=== PATIENT | female | born 1940 | race Caucasian/White ===

== ENCOUNTER 2017-05-31 09:41 | Inpatient (IN) | payer MEDICARE, OTHER ==
[~2017-05-31] VITALS: Ht 165.1 cm; Wt 102.5 kg
[2017-06-03] MEDS ORDERED: HYDROCHLOROTHIA50 MG PO (16:27)
[2017-06-03] MEDS ORDERED: SYNTHROID200 MCG PO (16:28)
[2017-06-03] MEDS ORDERED: MULTIVITAMINS1 EAC7 PO (16:29)
[2017-06-03] MEDS ORDERED: ULTRAM50 MG PO (16:30)
[2017-06-03] MEDS ORDERED: KLOR-CON M1010 MEQ PO (16:32)
[2017-06-17] MEDS ORDERED: LEVAQUIN750 MG PO (06:08)
--- NOTE | 2017-06-17 17:43 | OR ---
[facility] [address] [place], [place] [address] Signed DATE OF PROCEDURE: 06/17/17 PREOPERATIVE DIAGNOSES Degenerative joint disease, right knee, severe. Rotator cuff tear, left shoulder. POSTOPERATIVE DIAGNOSES Degenerative joint disease, right knee, severe. Rotator cuff tear, left shoulder. PROCEDURES PERFORMED Right total knee arthroplasty with computer navigation. Left shoulder injection. SURGEON: Roosevelt Josue MD. ASSISTANTS Mandi Carranza PA-C. Mandi was present for the entire surgery and was critical for positioning, retraction and wound closure. RAÚL Gutierrez. ANESTHESIA: Spinal. BLOOD LOSS: Minimal. TOURNIQUET TIME: 54 minutes. IMPLANT SIZE: 4 triathlon femur and tibia, 11 mm insert, 32 mm patella. BRIEF HISTORY Emerita is a 77-year-old female with progressive worsening of arthritis. She had undergone a long series of nonoperative treatment with diminishing return. Risks and benefits of all treatment discussed with her and she had successful left total knee replacement. She elected to proceed. DESCRIPTION OF PROCEDURE Once consent was obtained, she was taken to the operating room after adequate anesthesia, was placed on operating room table. All downside pressure points were completed. Time-out was completed. The leg was prepped and draped in a standard sterile fashion, exsanguinated using Esmarch bandage and tourniquet inflated to 250 mmHg. Standard anterior approach through curved incision was taken through skin and subcutaneous tissue. Median parapatellar arthrotomy was performed. The infrapatellar fat Electronically Signed By: ROOSEVELT JOSUE MD 06/17/17 1743 PATIENT NAME: JAYMIE SCHAFFER OPERATIVE REPORT DATE OF : 42 PHYSICIAN: ROOSEVELT JOSUE MD REPORT #: [id number] REPORT IS CONFIDENTIAL AND NOT TO BE RELEASED WITHOUT AUTHORIZATION [facility] [address] [place], [place] [address] Signed pad was excised. The MCL was elevated of a sleeve around the posterior medial corner. The meniscal remnants were removed and the ACL was transected. PCL was found to be intact. The navigation guide was pinned to the distal femur and the femur was registered with the computer. The cutting block was then pinned in neutral alignment and the distal femoral cut was made. The distal femur sized to a 4, which matched the opposite side. The AP cutting block was then pinned in line with epicondylar axis and the anterior, posterior and chamfer cuts were made . Osteophytes were removed and all bone blocks were removed. The attention was then turned to the proximal tibia. The navigation guide was pinned to the top of the tibia and the tibia was registered with the computer. The cutting block was then pinned in neutral alignment and the tibial cut was made with care taken to protect the patellar tendon and MCL. The bone block was removed. Any meniscal remnants removed. Posterior release was performed off the femur and posterior osteophytes removed, which were quite large on the medial side. The flexion-extension gaps were sized, found to be symmetric at 11 mm. The trials were then positioned. Knee was taken through range of motion and found to be quite stable. The patella was cut sized and drilled for a 32 patella. The distal femoral holes were drilled. The trial was removed and the proximal tibia was finished using the keel punch. Bone was pulse lavaged, packed with dry Ray-Ras. The cement was mixed. When we reached proper consistency, it was placed on bone surfaces and all implants. Tibia was impacted in position first and the excess cement was removed. The polyethylene was snapped into position. The femur was impacted. Again, any excess was removed. The knee was extended and nicely loaded. Patella was clamped into position and all excess was removed. Cement was on for 14 minutes and then the knee was flexed and the remaining cement was removed using osteotomes. Periarticular soft tissues were injected with 100 mL of ropivacaine and Toradol mixture. The knee was pulse lavaged at intervals throughout the procedure, a total of 3 L were used. The arthrotomy was then closed using #1 Stratafix, 0 Stratafix for subcutaneous tissue, and ave for the skin. The wound was dressed with Mepilex Ag dressing, ABD and Aman wrap. She was awakened and taken recovery in satisfactory condition. At the end of the procedure, I did inject her subacromial space with 6 mL of Ropivacaine and Kenalog mixture. She having substantial shoulder pain. Roosevelt Josue MD BA/Modl /[id number] Electronically Signed By: ROOSEVELT JOSUE MD 06/17/17 1743 PATIENT NAME: JAYMIE SCHAFFER OPERATIVE REPORT DATE OF : 42 PHYSICIAN: ROOSEVELT JOSUE MD REPORT #: [id number] REPORT IS CONFIDENTIAL AND NOT TO BE RELEASED WITHOUT AUTHORIZATION [address] [address] Signed cc: Gurdeep Adair DO Electronically Signed By: ROOSEVELT JOSUE MD 06/17/17 1743 PATIENT NAME: JAYMIE SCHAFFER KIM OPERATIVE REPORT DATE OF : 42 PHYSICIAN: ROOSEVELT JOSUE MD REPORT #: [id number] REPORT IS CONFIDENTIAL AND NOT TO BE RELEASED WITHOUT AUTHORIZATION
[2017-06-17] MEDS ORDERED: SYNTHROID25 MCG PO (18:14)
[2017-06-20] MEDS ORDERED: XARELTO10 MG PO (07:37)
[2017-06-20] MEDS ORDERED: MIRALAX17 GM PO (07:37)
[2017-06-20] MEDS ORDERED: OXYCODONE HCL5 MG PO (07:37)
[2017-06-20] MEDS ORDERED: HYDROCODON-ACE1 EA11 PO (07:37)
[2017-06-20] MEDS ORDERED: DOCUSATE SODIU250 MG PO (07:37)
[2017-06-20] MEDS ORDERED: NYSTATIN100000 UN1 PO (09:51)
--- NOTE | 2017-06-20 15:44 | DS ---
[facility] [address] [place], [place] [address] Signed DATE OF DISCHARGE: 06/20/17 ADMISSION DIAGNOSIS Degenerative joint disease, right knee . DISCHARGE DIAGNOSIS Degenerative joint disease, right knee. PROCEDURE PERFORMED Right total knee arthroplasty. BRIEF HISTORY Emerita is a 77-year-old female with progressive worsening of her osteoarthritis. She had prior total knee and wished to proceed with one on this side. Risks and benefits of operative treatment were discussed with her and she elected to proceed. Once consent was obtained, she was taken to the operating room. After adequate anesthesia, she underwent the above-named procedure. Taken to recovery room and subsequently to orthopedic floor. Postoperatively, her pain relief was good initially; however, she struggled and we increased her Oxycodone to 10 mg q.6 hours and this managed her pain. She had [place] for breakthrough pain. She did well with physical therapy, was able ambulae down the tristan and went up and down stairs by the day of discharge. She was kept kept on DVT prophylaxis of SCDs, TEDs and Xarelto 10 mg daily. She will be discharged home with outpatient physical therapy and her current medications. The Xarelto will continue for 7 more days. She will follow up with me in 10-14 days as previously scheduled. Roosevelt Josue MD BA/Albertina /[id number] cc: Gurdeep Adair DO Electronically Signed By: ROOSEVELT JOSUE MD 06/20/17 1544 PATIENT NAME: JAYMIE SCHAFFER DISCHARGE SUMMARY DATE OF : 42 PHYSICIAN: ROOSEVELT JOSUE MD REPORT #: [id number] REPORT IS CONFIDENTIAL AND NOT TO BE RELEASED WITHOUT AUTHORIZATION
== END 2017-06-20 11:17 | disposition home or self-care (01) | DRG 470 ==
LOC: MS 06-17 05:45 → DSVR 06-17 05:45 → MS 06-17 06:45
PROVIDERS: ADMIT Specialist
PROC: 3E0U33Z Introduction of Anti-inflammatory into Joints, Percutaneous Approach (ICD-10-PCS; 2017-06-17)
PROC: 3E0U3BZ Introduction of Anesthetic Agent into Joints, Percutaneous Approach (ICD-10-PCS; 2017-06-17)
PROC: 0SRC0JZ Replacement of Right Knee Joint with Synthetic Substitute, Open Approach (ICD-10-PCS; principal; 2017-06-17 06:45)
DX: M17.11 Unilateral primary osteoarthritis, right knee (principal); N39.0 Urinary tract infection, site not specified; M75.102 Unspecified rotator cuff tear or rupture of left shoulder, not specified as traumatic; I10 Essential (primary) hypertension; E03.9 Hypothyroidism, unspecified; B96.20 Unspecified Escherichia coli [E. coli] as the cause of diseases classified elsewhere
CPT/HCPCS: 01402; 36415; 64447; 76942; 80048; 83735; 85025; 94762; 97110; 97116; 97162; 97530; C1713; C1776; J0690; J1100; J1885; J2250; J2274; J2405; J2704; J2795; J3010; J3301; J3475; J7120

== ENCOUNTER 2017-07-04 09:09 | Observation (INO) | payer MEDICARE, OTHER ==
[~2017-07-04] VITALS: Ht 165.1 cm; Wt 102.5 kg
[~2017-07-04 09:09] MED LIST: DOCUSATE SODIU250 MG PO; HYDROCHLOROTHIA50 MG PO; HYDROCODON-ACE1 EA11 PO; KLOR-CON M1010 MEQ PO; LEVAQUIN750 MG PO; MIRALAX17 GM PO; MULTIVITAMINS1 EAC7 PO; NYSTATIN100000 UN1 PO; OXYCODONE HCL5 MG PO; SYNTHROID200 MCG PO; SYNTHROID25 MCG PO; ULTRAM50 MG PO; XARELTO10 MG PO
--- NOTE | 2017-07-04 14:00 | NUR ---
DIRECT ADMIT TO FLOOR PER DR. AMAYA FOR R LEG CELLULITS POST TKA SURGERY DONE 2 WEEKS AGO. PATIENT STATES " IT STARTED TO TURN RED IN LAST COUPLE DAYS". ICE APPLIED TO SURGICAL SITE, AND HEEL PROTECTORS ON. ADMINISTERED SCHEDULED PAIN MEDICAITON AND STARTED A 20G IN RIGHT FA. PROVIDED PATIENT WITH ICE WATER AND CALL LIGHT IS WITHIN REACH. FULL BODY ASSESMENT DONE. NOW WAITING FOR PHARMACY TO PROVIDE IV VANCO.
--- NOTE | 2017-07-04 15:45 | NUR ---
FAMILY BROUGHT IN KYRO CUFF, FILLED WITH ICE AND APPLIED TO KNEE. PATIENT REPORTS CONCERNS ABOUT BLOOD BEING DRAWN, STATES " I WILL NOT HAVE MY BLOOD DRAWN WHILE I AM HERE." DISCUSSED IMPORTANCE OF HAVING BLOOD TO MONITOR RESPONSE TO VANCO IV TX. RIGHT LEG WARM TO TOUCH, NOTED REDNESS EXPANDING DOWN INTO COLES, NOTES PAIN IS IN UPPER KNEE.
--- NOTE | 2017-07-04 17:03 | NUR ---
LAB DRAW BEING DONE FOR CMP. PATIENT RESTING IN BED, REPORTS GOOD PAIN CONTROL AT THIS TIME. VANCO CONTINUES TO INFUSE.
[2017-07-04] MEDS ORDERED: NABUMETONE750 MG PO (18:45)
--- NOTE | 2017-07-04 18:45 | NUR ---
PATIENT DIRECT ADMIT TO FLOOR FROM DR. AMAYA OFFICE. CELLULITIS TO LOWER EXTREMITY. NOTED SOME REDNESS TO RIGHT COLES. INCREASED PAIN TO SURGICAL SITE. AFEBRILE. VS STABLE. ADMIINISTERED PAIN MEDICATION PRN, RATES PAIN 3/10 ON PAIN SCALE WHILE RESTING. 1 PERSON ASSIST WITH WALKER.
[2017-07-04] MEDS ORDERED: CHLOROTHIAZIDE PO (18:46)
--- NOTE | 2017-07-04 18:50 | NUR ---
MED REC COMPLETE
--- NOTE | 2017-07-04 19:51 | NUR ---
IN TO MEET PT, PT AWAKE WATCHING TV. RATES PAIN 1/10 WITH REST AND STATES IT INCREASES WITH ACTIVITY. DISCUSS CURRENT PAIN AND EXPECTATIONS FOR PAIN. DISCUSSED MEDICATION OPTIONS. PT IS CONCERNED ABOUT THRUSH WHEN TAKING ABX, NOTE WRITTEN TO DISCUSS. DRESSING C/D/I. REDNESS NOTED ON R COLES AND CALF. PT DESCRIBES PAIN ON THE LATERAL ASPECT OF THE R KNEE. WATER AT BEDSIDE. NO FURTHER NEEDS AT THIS TIME. CALL LIGHT WITH IN REACH.
--- NOTE | 2017-07-04 21:08 | NUR ---
IN TO SEE PT, SCHEDULED PAIN MEDICATION GIVEN. PT AWAKE AND ALERT. PT UP TO BATHROOM WITH FWW AND 1 PERSON ASSIST. NOTED THAT R ANKLE/FOOT ROTATED IN AN OUTWORD POSITION AND PT WALKING ON HEEL. PT ADVISED TO ATTEMPT TO STRAIGHTEN FOOT, PT AWARE. PT STATES THAT SHE IS UNABLE TO STRAIGHTEN HER FOOT DUE TO PAIN. PT ASSISTED BACK TO BED. TOLERATED WELL. CRYO CUFF IN PLACE. NO FURTHER NEEDS AT THIS TIME. CALL LIGHT IN REACH.
--- NOTE | 2017-07-04 23:07 | NUR ---
IN TO CHECK ON PT, PT SLEEPING. AWAKENS EASILY TO SOUND. PT STATES "I AM DOING OKAY." NO FURTHER NEEDS AT THIS TIME. CRYO CUFF, TEDS AND HEEL PROTECTORS IN PLACE. WATER AT BEDSIDE. CALL LIGHT WITH IN REACH.
--- NOTE | 2017-07-05 | NUR ---
IN TO CHECK ON PT, PT SLEEPING. AWAKENS EASILY TO VOICE. RATES PAIN A 1/10 WHILE STILL. PAIN INCREASES WITH ACTIVITY. OXYCODONE PRN GIVEN. NO FURTHER NEEDS AT THIS TIME. CRYO CUFF, TEDS AND HEEL PROTECTORS IN PLACE. CALL LIGHT WITH IN REACH.
--- NOTE | 2017-07-05 02:05 | NUR ---
IN TO CHECK ON PT, PT AWAKE, UP TO BATHRROM WITH ASSIST FROM INSTRUMENT ASSEMBLER. PT RATES PAIN A 4/10. SCHEDULED MEDICATION GIVEN. PT ASSISTED BACK TO BED. PT IS CONCERNED THAT REDNESS ON R LE IS WORSENING. ASSESSMENT DONE, REDNESS DOES NOT APPEAR TO BE WORSENING. WILL CONTINUE TO MONITOR. CRYO CUFF, TEDS AND HEEL PROTECTORS IN PLACE. NO FURTHER NEEDS AT THIS TIME. CALL LIGHT IN REACH.
--- NOTE | 2017-07-05 04:27 | NUR ---
IN TO CHECK ON PT, PT SLEEPING ON R SIDE. NO APPARENT DISTRESS NOTED. RR EVEN AT 16 AND UNLABORED. CRYO CUFF IN PLACE. TEDS AND HEEL PROTECTORS IN PLACE. WATER AT BEDSIDE. CALL LIGHT WITH IN REACH.
--- NOTE | 2017-07-05 05:55 | NUR ---
PT HAS HAD UNEVENTFUL SHIFT. C/O PAIN A 1-4/10, SCHEDULED AND PRN MEDICATIONS GIVEN. PT RATES PAIN A 1/10 WHILE LYING IN BED AND INCREASES TO A 4-5/10 WITH AMBULATION. PT AAO X3, PLEASANT DEMEANOR. CALL APPROPRIATLY. DRESSING C/D/I, REDNESS NOTED ON R LE. AFIBRILE. PT UP TO BATHROOM WITH FWW AND STANDBY ASSIST. DENIES NAUSEA. CRY CUFF, TEDS AND HEEL PROTECTORS IN PLACE.
--- NOTE | 2017-07-05 08:30 | NUR ---
DISCUSSED PAIN MEDICATIONS WITH PATIENT, AND ENCOURAGED PATIENT TO TRY DILAUDID ESPECIALLY WITH ACTIVITIES OF THE DAY. PATIENT AGREED TO PLAN OF CARE ADMINISTERED 8MG DILAUDID PO. ICE TO KNEE, REDNESS APPEARS TO BE IMPROVED AND DECREASED SWELLING. DR. AMAYA ROUNDED ON PATIENT. NO NEW ORDERS AT THIS TIME.
--- NOTE | 2017-07-05 10:00 | NUR ---
PATIENT RESTING EASY WITH EYES CLOSED, O2 SATURTION 94% RR 14. PATIENT STATES PAIN IS 0/10 AND HASN'T FELT PAIN FREE SINCE SURGERY. PHYSICAL THERAPY TO ROOM TO WORK WITH PATIENT, PATIENT APPEARS ENCOURAGED TO PARTICIPATE. AMBULATED IN WALL AND TO PHYSICAL THERAPY ROOM.
--- NOTE | 2017-07-05 12:24 | NUR ---
PATIENT RESTING ON SIDE OF BED, STATES " I AM STARTING TO HURT AGAIN" PATIENT REQUESTED 2TABS OF OXYCODONE PO. PATIENT ATE 30% OF LUNCH BUT REPORTS FEELING MORE HUNGRY THEN SHE HAS BEEN. ICE TO LOWER EXTREMITY, REDNESS CONTINUES TO IMPROVE AND APPEARS LESS SWOLLEN. PATIENT INDEPENDANT IN ROOM, APPEARS STEADY ON FEET.
--- NOTE | 2017-07-05 14:31 | NUR ---
PATIENT RESTING IN BED AT THIS TIME, PAIN WELL CONTROLLED. PATIENT CONTINUES TO REPORT PAIN IS IMPROVED. VOIDING WELL. DISCUSSED MEDICAITONS, PATIENT REPORTS CONCERNS OF GETTING ADDICTED TO PAIN MEDICAITONS. PROVIDED REASSURANCE AND ENCOURAGEMENT TO CONTROL PAIN. VS STABLE. CRYO CUFF ON AND HEEL PROTECTORS. PATIENT UP TO BATHROOM STEADY ON FEET.
--- NOTE | 2017-07-05 18:16 | NUR ---
PAIN HAS BEEN WELL CONTROLLED THROUGHOUT DAY, PATIENT REPORTS IMPROVED FROM YESTERDAY. ICE THERAPY AND HEEL PROTECTORS IN PLACE. PATIENT UP INDEPENDANTLY IN ROOM. GOOD ROM. GOOD PEDAL PULSES. AFEBRILE. WORKED WITH PHYSICAL THERAPY X2. VS STABLE.
--- NOTE | 2017-07-05 18:28 | NUR ---
PATIENT REPORTS PAIN TO RIGHT LEG HAS IMPROVED THROUGHOUT DAY. IV VANCO TX, TOLERATING WELL. PAIN WELL CONTROLLED. INDEPENDANT IN ROOM. AFERBILE, VS STABLE.
--- NOTE | 2017-07-05 18:51 | NUR ---
REFILLED CRYO AT 1600.
--- NOTE | 2017-07-05 19:15 | NUR ---
IN TO CHECK ON PT, PT AWAKE LAYING IN BED. REPORT RECVD FROM SCOTTY ESPAÑA. PT STATES SHE HAD A GOOD DAY AND HAS HAD BETTER PAIN CONTROL AFTER STARTING PO DILAUDID. PT REQUEST DILAUDID FOR PAIN BEFOR BED. DRSG C/D/I. REDNESS ON R COLES AND ANKLE NOTED TO BE DECREASED. PT IS INDEPENDENT IN ROOM, STEADY ON FEET WITH ASSIST OF FWW. CRYO CUFF, TEDS AND HEEL PROTECTORS IN PLACE. CALL LIGHT WITH IN REACH.
--- NOTE | 2017-07-05 20:01 | NUR ---
IN TO SEE PT, ASSESSMENT COMPLETED AND PM MEDICATION GIVEN. DILAUDID GIVEN PER PT REQUEST, SCHEDULED OXYCODONE HELD. PT AWAKE AND ALERT, WATCHING TV. PT UP TO BATHROOM WITH FWW. PT TOLERATED WELL, LITTLE ASSIST NEEDED. FRESH WATER GIVEN. CRYO CUFF, TEDS AND HEEL PROTECTORS IN PLACE. NO FURTHER NEEDS AT THIS TIME. CALL LIGHT IN REACH.
--- NOTE | 2017-07-05 22:10 | NUR ---
IN TO CHECK ON PT, PT APPEARS TO BE SLEEPING. NO APPARENT DISTRESS NOTED. CRYO CUFF AND TEDS IN PLACE. WALKER AT BEDSIDE PT IS INDEPENDENT IN HER ROOM. CALL LIGHT IN REACH.
--- NOTE | 2017-07-06 00:44 | NUR ---
IN TO CHECK ON PT, PT SLEEPING. AWAKENS EASILY TO SOUND. PT RATES PAIN A 4/10 WHILE UP TO THE BATHROOM. PRN DILAUDID GIVEN. PT ASSISTED BACK TO BED. CRYO CUFF FILLED WITH ICE. FRESH ICE WATER GIVEN. CRYO CUFF AND TEDS IN PLACE. NO FURTHER NEEDS AT THIS TIME. CALL LIGHT IN REACH.
--- NOTE | 2017-07-06 02:08 | NUR ---
IN TO PT'S ROOM, PT SLEEPING. AWAKENS EASILY TO VOICE. SCHEDULED PAIN MEDICATIONS GIVEN. PT REPOSITIONED FOR COMFORT. CRYO CUFF AND TEDS IN PLACE. NO FURTHER NEEDS AT THIS TIME. CALL LIGHT IN REACH.
--- NOTE | 2017-07-06 04:12 | NUR ---
IN TO CHECK ON PT, PT SLEEPING. AWAKENS EASILY TO VOICE. PT STATES "MY PAIN IS OKAY." OFFERED PRN MEDICTION, PT DECLINED. PT STATES "LET'S WAIT." CRYO CUFF AND TEDS IN PLACE. WALKER AT BEDSIDE PT IS INDEPENDENT IN ROOM. WILL CONTINUE TO MONIOR. CALL LIGHT IN REACH.
--- NOTE | 2017-07-06 05:10 | NUR ---
PT HAS HAD UNEVENTFUL SHIFT. SCHEDULED OXYCODONE AND PRN DILAUDID GIVEN FOR PAIN. PAIN APPEARS TO BE BETTER CONTROL WITH PRN DILAUDID. PT AAO X3, PLEASANT DEMENOR. DRSG C/D/I. REDNESS IN RLE IMPROVING. AFIBRILE, VITALS STABLE. PT IS INDEPENDENT IN ROOM WITH ASSIST OF FWW. VOIDING WELL. CRYO CUFF AND TEDS IN PLACE.
--- NOTE | 2017-07-06 06:09 | NUR ---
IN TO CHECK ON PT, PT SLEEPING. AWAKENS EASILY TO VOICE. PT ASKED IF BREAKTHROUGH PAIN MEDICATION WAS NEEDED, PT STATES " I DON'T KNOW, I AM NOT HURTING RIGHT NOW." PT ADVISED TO CALL IF PAIN MEDICATION IS NEEDED, BEFORE THE NEXT SCHEDULED DOSE. NO FURTHER NEEDS AT THIS TIME. CRYO CUFF AND TEDS IN PLACE. CALL LIGHT IN REACH.
--- NOTE | 2017-07-06 06:50 | NUR ---
IN TO SEE PT, PT REQUEST PAIN MEDICATION FOR 4/10 PAIN. DISCUSSED UPCOMING SCHEDULED MEDICATIONS AND PRN OPTIONS. PRN DILAUDID GIVEN IN ANTICIPATION OF PT THIS AM. PT STATES "THAT MY PAIN HAS IMPROVED A LOT." PT DOES HAVE CONCERNS REGARDING DISCHARGE MEDICATIONS. ENCOURAGED PT TO SPEAK WITH DR. AMAYA REGARDING HER CONCERNS. NO FURTHER NEEDS AT THIS TIME. CALL LIGHT IN REACH.
--- NOTE | 2017-07-06 07:20 | NUR ---
BEDSIDE HANDOFF REPORT RECEIVED FROM BAR MACHINE OPERATOR MULTIPLE SPINDLE RN. PT RESTING IN BED. PT RATING PAIN 1/10 WITH MOVEMEMT. PT ASSISTED WITH INTERNET ACCESS. PT DENIES OTHER NEEDS AT THIS TIME.
--- NOTE | 2017-07-06 09:00 | NUR ---
PT RESTING IN BED. PT CONTINUES TO RATE PAIN 1/10 AT THIS TIME. HAD LENGTHY DISCUSSION ON PAIN MANAGEMENT, PT STATING "I AM SO CONFUSED ABOUT THE PAIN MEDICATION", WROTE OUT PAIN MEDICATIONS AND MAD PLAN TO CONTINUE SCHEDULE OXYCODONE, USE DILAUDID FOR BREAKTHROUGH AND THEN USE ADDITONAL PRN OXYCODONE LAST, PT AGREEABLE STATING "I FEEL I GET BETTER COVERAGE WITH DILAUDID". PT LUNG SOUNDS CLEAR, ON ROOM AIR. BOWEL TONES, DENIES NAUSEA. RLE WITH REDNESS TO LOWER COLES, BRUISING NOTED. RIGHT KNEE WITH DRESSING, CDI. TEENA HOSE AND CRYOCUFF IN PLACE. PT DENIES OTHER NEEDS AT THIS TIME, WILL REASSESS PAIN DISCUSSED WITH PT.
--- NOTE | 2017-07-06 10:46 | NUR ---
PT IS CURRENTLY WORKING WITH PHYSICAL THERAPY WILL DO VITALS UPON RETURN
--- NOTE | 2017-07-06 11:20 | NUR ---
PT REQUESTING PAIN MEDICATION. RATING PAIN 3/10, COMPLETED THERAPY, RATED PAIN DURING THERAPY 3/10. PT DENIES OTHER NEEDS AT THIS TIME.
--- NOTE | 2017-07-06 13:05 | NUR ---
PT RESTING IN BED. RATES PAIN 0-1/10 AT THIS TIME. REQUESTING WARM BLANKET, RPOVIDED, CRYOCUFF IN PLACE, ICE REFRESHED. PT REQUESTING TO NAP.
--- NOTE | 2017-07-06 14:38 | NUR ---
PT IS RESTING IN BED SAFELY WITH CALL LIGHT IN REACH. PT DID NOT NEED ANYTHING AT THE MOMENT
--- NOTE | 2017-07-06 16:52 | NUR ---
IV SITE TO R ARM LEAKING. VANCO INFUSION STOPPED. IV SITE OBTAINED TO LEFT FOREARM, DIFFICULT START, REQUIRED 5 ATTEMPTS. IV VANCO INFUSING.
--- NOTE | 2017-07-06 18:26 | NUR ---
PT AHD UNEVENTFUL DAY. PAIN PLAN ESTABLISHED WITH PT, ALTERNATING DILAUDID WITH SCHEDULED OXYCODONE, PAIN WELL CONTROLLED 1-01/11. NEW IV ACCESS TO LFA, INFUSING VANCO. PT UP WITH SBA TO BATHROOM, VOIDING QS. TEENA HOSE AND CRYOCUFF INPLACE. REDNESS UNCHAGED THIS SHIFT, LOCALIZED TO LOWER COLES.
--- NOTE | 2017-07-06 18:37 | NUR ---
PT IS RESTING IN BED SAFELY WITH CALL LIGHT IN REACH. PT ASKED FOR MORE ICE WATER AND VANILLA PUDDING
--- NOTE | 2017-07-06 20:08 | NUR ---
PT AWAKE, AND TALKING ON PHONE.
--- NOTE | 2017-07-06 21:30 | NUR ---
PT REFUSED THE ORDERED MILK OF MAGNESIUM. STATED SHE DIDN'T NEED IT. ASSESSMENT COMPLETE. PT STATED THAT SHE WANTED TO STAY AHEAD HER PAIN. HAS SCHEDULED PAIN MED, WITH DILUADID PRN. WANTS THE DILUADID IN BETWEEN THE SCHEDULED OXYCODONE. PT RT LOWER LEG, COLES WITH APPROX 8 CM REDNESS. WARM AND DRY, PT STATES THAT THE REDDNESS HAD BEEN FROM HER KNEE DOWN. MULT BRUISES NOTED, POST SURGERY. PT USED THE BATHROOM WELL, OUT OF BED INDEPENDENTLY WITH A FRONT WHEELED WALKER.
--- NOTE | 2017-07-06 22:30 | NUR ---
PT AWAKE, WATCHING TV. MEDICATED WITH PRN DILUADID PER PT REQUEST. STATES THAT THIS MEDICATION REGIME HAS HELPED KEEP HER PAIN LEVEL TO A #1, AND GETTING UP TO WALK TO THE BATHROOM, WHILE PAINFUL, IS MANAGEABLE.
--- NOTE | 2017-07-07 00:30 | NUR ---
LIGHTS OUT, PT EYES CLOSED, RESP EVEN AND UNLABORED.
--- NOTE | 2017-07-07 02:29 | NUR ---
PT RESP EVEN AND UNLABORED. HAS NOT USED CALL LIGHT SINCE [phone]
--- NOTE | 2017-07-07 02:59 | NUR ---
PT MEDICATED WITH SCHEDULED PAIN MEDS. UP TO THE BATHROOM TO VOID. USED WALKER, NOTED HER RIGHT FOOT IS TURNED OUT VS TOES POINTING AHEAD. WHEN RECORRECTING PATIENT OF WALKING WITH HER TOES POINTED FORWARD, SHE SAID THIS IS HOW MY FOOT ALWAYS IS. YOU ARE ALL TRYING TO CHANGE IT BUT I WALK WITH MY FOOT THIS WAY. "SHOULD SEE MY FOOTPRINTS IN THE SNOW".
--- NOTE | 2017-07-07 03:23 | NUR ---
PATIENT CALLED, ASKED HELP TO PLACE THE CRYO CUFF BACK TO HER RT KNEE. CRYO CUFF REFILLED. PATIENT ASKED FOR CHOCOLATE PUDDING AND ICE WATER.
--- NOTE | 2017-07-07 05:56 | NUR ---
PT AWAKE, MEDICATED WITH PRN DILAUDID. EARIER IN NIGHT PT REQUESTED PUDDING. PAIN CONTINUES AT A "1", USED CRYO CUFF ALL NIGHT. TEENA HOSE IN PLACE. MOVING SELF AROUND IN BED INDEPENDELTY.
--- NOTE | 2017-07-07 07:20 | NUR ---
HANDOFF REPORT RECEIVED FROM DIRECTOR OF SPORTS MEDICINE RN.
--- NOTE | 2017-07-07 08:55 | NUR ---
PT SITTING ON EDGE OF BED, PA AT BEDSIDE. PT RATING PAIN 1/10 AT THIS TIME. PT DENIES NAUSEA, TOLERATING REGUALR DIET. PT ON ROOM AIR, LUNG SOUNDS CLEAR. DISCUSSED PAIN MANAGEMENT, PLAN TO CONTINUE CURRENT SCHEDULE OF ALTERNATIGN SCHEDULED OXYCODONE AND DILAUDID, PT REQUESTING A CHART TO BE MADE WITH TIMES. RLE WITH SWELLING TO COLES JUST ABOVE ANKLE, NO SWELLING NOTED. DISCUSSED VANCO TROUGH WITH PT, AGREEBLE TO BLOOD DRAW. PT DENIES OTHER NEEDS AT THIS TIME. ICE IN CRYOCUFF REFRESHED BY NURSE AIDE.
--- NOTE | 2017-07-07 11:10 | NUR ---
PT REQUESTING PAIN MEDICATION BEFORE WORKING WITH PHYSICAL THERAPY. GIEN 8 MG PO DILAUDID PER PAIN MANAGEMENT PLAN. PT RESTING IN BED. CRYOCUFF IN PLACE. PT DENIES OTHER NEEDS AT THIS TIME.
--- NOTE | 2017-07-07 12:14 | NUR ---
PT WORKING WITH PHYSICAL THERAPY, WALKING IN [facility].
--- NOTE | 2017-07-07 12:35 | NUR ---
PATIENT IS DOING GOOD. REFILLED CRYO CUFF.
--- NOTE | 2017-07-07 14:20 | NUR ---
PT RESTING IN BED. PT RATING PAIN 1/10 TO RIGHT KNEE, GIVEN 7.5 MG PO OXYCODONE SCHEDULED. DISCUSSED PLAN FOR VANCO TROUGH LAB DRAW, LIBRARY MEDIA TECHNICIAN AT BEDSIDE. PT ON ROOM AIR. DENIES NAUSEA, TOLERATING REGULAR DIET. WITHOUT EDEMA, CMS INTACT. CRYOCUFF AND TEENA HOSE ON. PT DENIES NEEDS AT THIS TIME.
--- NOTE | 2017-07-07 16:00 | NUR ---
VANCO DOSE ADJUSTED BY PHARMACY FOR TROUGH OF 8.4. PT REQUESTING TO USE RESTROOM. VANCO INFUSING. PT REQUESTING MILK OF MAG EARLY.
--- NOTE | 2017-07-07 17:33 | NUR ---
PT GIVEN 8 MG PO DILAUDID PER PAIN PLAN SCHEDULE. PT RESTING IN BED. IV VANCO INFUSING. PT DENIES OTHER NEEDS AT THIS TIME.
--- NOTE | 2017-07-07 18:07 | NUR ---
PT HAD UNEVENTFUL DAY. PAIN WELL CONTROLLED WITH PAIN PLAN, ALTERNATING BETWEEN DILAUDID AND OXYCODONE. PT INDEPENDENT IN ROOM, SBA TO WALK IN WALL. PT TOLERATING REGUALR DIET, DENIES NAUSEA. VANCO TROUGH 8.4, DOSE ADJUSTED. IV SL. BOWEL TONES ACTIVE, REQUEST MILK OF MAG EARLY. REDNESS TO RLE UNCHANGED, NO LONGER WARMER TO TOUCH. TEENA HOSE AND CRYOCUFF IN PLACE.
--- NOTE | 2017-07-07 19:25 | NUR ---
RECEIVED REPORT FROM DAY SHIFT RN. PATIENT IS RESTING IN BED WATCHING TV. PATIENT DENIES ANY PAIN AT THIS TIME. PATIENT DENIES ANY NEEDS. CALL LIGHT IN REACH.
--- NOTE | 2017-07-07 21:49 | NUR ---
PATIENT ASSESMENT COMPLETED. PATIENT RATES PAIN AT A 1/10. PATIENT GIVEN SCHEDULED PAIN MEDICATION PER ORDER. PATIENT DENIES THE NEED FOR FURTHER PAIN MEDICATION AT THIS TIME. PATIENT HAS CRYO APPLIED TO RIGHT KNEE. PATIENTS CRYO REFILLED WITH ICE PER DRECTIONS. PATIENT HAS TEDHOSE ON BOTH LOWER EXTREMETIES. PATIENT REFUSES TO WEAR HEEL PROTECTORS STATING "THEY MAKE ME TO HOT". PATIENT IS ON A REG DIET, NO CAOMPLAINTS OF NAUSEA. PATIENT IS A SBA W/FWW. PATIENT IS AAOX3. PATIENT DENIES ANY FURTHER NEEDS AT THIS TIME. CALL LIGHT IN REACH.
--- NOTE | 2017-07-07 23:26 | NUR ---
PATIENT GIVEN PRN PAIN MEDICATION PER REQUEST. PATIENT RATES PAIN AT A 1/10 IN HER IRGHT KNEE. PATIENT ASSISTED TO THE RESTROOM. PATIENT IS A SBA W/FWW. PATIENT IS STEADY ON HER FEET. PATIENT IS NOW BACK IN BED RESTING. PATIENT HAS CRYO APPLIED TO RIGHT KNEE. CRYO HAS SUFFICIENT ICE AT THIS TIME. PATIENT DENIES ANY FURTHER NEEDS. CALL LIGHT IN REACH.
--- NOTE | 2017-07-08 01:12 | NUR ---
PATIENT IS RESTING IN BED WITH EYES CLOSED, RR 17
--- NOTE | 2017-07-08 02:22 | NUR ---
PATIENT GIVEN SCHEDULED PAIN MEDICATION. PATIENT RATES PAIN AT A 1/10 IN HER RIGHT KNEE. PATIENTS CRYO REFFILED WITH ICE PER DIRECTIONS. CRYO APPLIED TO RIGHT KNEE. PATIENT DENIES ANY FURTHER NEEDS CALL LIGHT IN REACH.
--- NOTE | 2017-07-08 04:03 | NUR ---
PATIENTS IV ABX STARTED PER ORDER. PATIENT RATES PAIN AT A 1/10. PATIENT DENIES THE NEED FOR PAIN MEDICATION. PATIENT DENIES ANY FURTHER NEEDS AT THIS TIME. CALL LIGHT IS WITHIN REACH.
--- NOTE | 2017-07-08 05:10 | NUR ---
PATIENT GIVEN PRN PAIN MEDICATION PER REQUEST. PATIENT RATES PAIN AT A 1/10 ON HER RIGHT KNEE. PATIENT ASSISTED TO THE RESTROOM. PATIENT IS A SBA W/FWW. PATIENT DOES WELL WITH AMBULATION. PATIENT IS NOW BACK IN BED RESTING. PATIENT HAS CRYO APPLIED TO RIGHT KNEE AND IS HAS SUFFICIENT ICE. PATIENT DENIES ANY FURTHER NEEDS CALL LIGHT IN REACH.
--- NOTE | 2017-07-08 05:38 | NUR ---
PATIENT RESTED ON AND OFF THROUGHOUT THE SHIFT. PATIENT IS ON A REG DIET AND TOLERATING IT WELL. NO COMPLAINTS OF NAUSEA. PATIENT HAS TEDHOSE ON BOTH LOWER EXTREMETIES. PATIENT HAS CRYO APPLIED TO RIGHT KNEE. PATIENT IS A SBA W/FWW. PATIENT HAS DRESSING ON RIGHT KNEE THAT IS C/D/I W/NO SHADOWING PRESENT. PATIENT HAS REDENNED AREA ON THE FRONT OF HER CALF, IT IS NOT WARM TO THE TOUCH. PATIENT RECEIVED PRN PAIN MEDICATION EVERY TIME IT WAS AVAILABLE. PATIENT IS AAOX3 AND USES CALL LIGHT APPROPRIATELY.
--- NOTE | 2017-07-08 06:23 | NUR ---
PATIENTS MORNING MEDICATIONS GIVEN PER ORDER. PATIENTS IV ABX ARE COMPLETED. PATIENT IS NOW SL. PATIENT DENIES ANY PAIN. PATIENT DENIES ANY FURTHER NEEDS AT THIS TIME. PATIENTS CRYO REFILLED WITH ICE. PATIENTS DRESSING REMAINS C/D/I, NO SHADOWING PRESENT.
--- NOTE | 2017-07-08 08:12 | NUR ---
PT AWAKE IN BED UPON ENTERING ROOM. ALERT AND ORIENTED. RATING PAIN 1/10 IN RIGHT KNEE. MEDICATED WITH SCHEDULED OXY. PT SBA WITH FWW TO RESTROOM. RIGHT KNEE DRESSING CDI, NO BLEEDING OR DRAINAGE NOTED. NO REDNESS OR BRUISING NOTED AT SITE. RIGHT LOWER EXTREMITY CELLULITIS MILDLY PINK, SLIGHTLY WARM TO THE TOUCH. PT AMB TO BEDSIDE FROM RESTROOM. SITTING AT EDGE OF BED EATING BREAKFAST. CALL LIGHT WITHIN REACH.
--- NOTE | 2017-07-08 08:34 | NUR ---
PATIENT SITTING AT BED SIDE EATING BREAKFAST.
--- NOTE | 2017-07-08 09:24 | NUR ---
PATIENT SITTING UP IN BED. PATIENT STATES THAT SHE WASHED HERSELF UP AND BRUSHED HER TEETH ALREADY. CALL BUTTON IN REACH NO OTHER NEEDS AT THIS TIME.
--- NOTE | 2017-07-08 09:37 | NUR ---
PT WORKING WITH ELENA Hidalgo.
[2017-07-08] MEDS ORDERED: HYDROMORPHONE HC4 MG PO (09:43)
[2017-07-08] MEDS ORDERED: KEFLEX500 MG PO (09:43)
[2017-07-08] MEDS ORDERED: OXYCODONE HCL5 MG PO (09:43)
--- NOTE | 2017-07-08 11:00 | NUR ---
SPOKE WITH DR. AMAYA CONCERNING DC MEDS. RECEIVED TELEPHONE ORDER FOR LEVAQUIN. PT RECIEVED PRESCRIPTION FOR NARCOTC MEDS. JOSE LUIS STATED RIGHT KNEE DRESSING COULD BE REMOVED. THIS RN TOLD PT THAT DRESSING COULD COME OFF, PT REFUSED TO LET THIS RN REMOVE IT STATED "I WOULD PREFER TO REMOVE IT MYSELF WHEN I GET HOME." PT DISCHARGED HOME WITH CRYO CUFF AND PRESCRIPTION. ALL QUESTIONS BY PT AND SON ANSWERED.
--- NOTE | 2017-10-21 07:22 | DS ---
[facility] [address] [place], [place] [address] Signed ADMISSION DATE: 07/04/2017 DISCHARGE DATE: 07/08/2017 ADMISSION DIAGNOSIS: Cellulitis, right lower extremity. DISCHARGE DIAGNOSIS: Cellulitis, right lower extremity. PROCEDURE PERFORMED: None. 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 She had undergone outpatient physical therapy and developed redness in the pretibial area. She was seen in the office and admitted to the hospital with correction for IV antibiotics. She was placed on vancomycin. Her pain control was relatively poor. So we switched around her pain medication and then got much better. Her redness went away after 3 days and she was switched to oral medications of Levaquin. She will be discharged home with her current pain medications and 14 days of p.o. antibiotics. The patient will follow up with me in 7 days or notify me should she have any problems sooner. Roosevelt Josue MD BA/SANDER /[id number] Electronically Signed By: ROOSEVELT JOSUE MD 10/21/17 0722 PATIENT NAME: DEDE SCHAFFER DISCHARGE SUMMARY DATE OF : 42 PHYSICIAN: ROOSEVELT JOSUE MD REPORT #: [id number] REPORT IS CONFIDENTIAL AND NOT TO BE RELEASED WITHOUT AUTHORIZATION
== END 2017-07-08 11:32 | disposition home or self-care (01) ==
LOC: EDSTATUS 09:09 → MS 11:36
PROVIDERS: ADMIT Specialist
DX: T81.4XXA Infection following a procedure, initial encounter (principal); L03.115 Cellulitis of right lower limb; E66.9 Obesity, unspecified; E03.9 Hypothyroidism, unspecified; I10 Essential (primary) hypertension; Z68.37 Body mass index [BMI] 37.0-37.9, adult; Z96.651 Presence of right artificial knee joint; Z88.2 Allergy status to sulfonamides
CPT/HCPCS: 36415; 80048; 80053; 80202; 85025; 96365; 96366; 96375; 96376; 97032; 97110; 97116; 97162; G0378; G0379; G8978; G8979; J1885; J3370; J7060

== ENCOUNTER 2019-09-30 11:47 | Emergency (ER) | payer MEDICARE, OTHER ==
[~2019-09-30] VITALS: Ht 165.1 cm; Wt 98.4 kg
--- OUTSIDE RECORDS SUMMARY | ~2019-09-30 | XMS | Encounter Summary ---
Demographics + + + | Address | [address] | | | [place] [address] | + + + | Home Phone | | + + + | Preferred Language | Unknown | + + + | Marital Status | Single | + + + | Mormon Affiliation | 1077 | + + + | Race | Unknown | + + + | Ethnic Group | Unknown | + + + Author + + + | Author | [facility] | | | and [place] | + + + | Organization | [facility] | | | and [place] | + + + | Address | Unknown | + + + | Phone | Unavailable | + + + Support + + +---------+ + | Name | Relationship | Address | Phone | + + +---------+ + | None Listed | ECON | Unknown | | + + +---------+ + | Gunner Past | ECON | Unknown | | + + +---------+ + Care Team Providers + +------+ + | Care Pearl Glue Operator Name | Role | Phone | + +------+ + | Gurdeep Adair DO | PCP | | + +------+ + Reason for Visit Service/Procedure (Routine) +--------+--------+ + + + + | Status | Reason | Specialty | Diagnoses / | Referred By | Referred To | | | | | Procedures | Contact | Contact | +--------+--------+ + + + + | Closed | | Radiology | Diagnoses | | [facility] | | | | | Lumbar | [place], | [address] | | | | | radiculopath | Clint Oliva MD | [place], | | | | | y | [address] | [place] | | | | | Procedures | [place] | [address] | | | | | [place] INJECT | [place], [place] | Phone: | | | | | ANES/STEROID | [address] | [phone] | | | | | FORAMEN | Phone: | Fax: | | | | | LUMBAR/SACRA | [phone] | [phone] | | | | | L W IMG | Fax: | | | | | | GUIDE ,1 | [phone] | | | | | | LEVEL [place] | | | | | | | TRIAMCINOLON | | | | | | | E ACET INJ | | | | | | | NOS, 10 MG | | | | | | | Bilateral | | | | | | | L4-L5 | | | | | | | TFESI-APPT | | | | | | | 12/15 | | | +--------+--------+ + + + + Encounter Details +--------+ + + + + | Date | Type | Department | Care Team | Description | +--------+ + + + + | 10/18/ | Hospital | [facility] | Clint Cárdenas | Lumbar radiculopathy | | 2015 | Encounter | MED CTR XRAY [address], [address] | | | | | [place] | [place], [place] | | | | | [place] [address] | [address] | | | | | [phone] | | | | | | | Cook PieNicole | | +--------+ + + + + Social History + +-------+ +--------+------+ | Tobacco Use | Types | Packs/Day | Years | Date | | | | | Used | | + +-------+ +--------+------+ | Never Smoker | | | | | + +-------+ +--------+------+ + +---+---+---+ | Smokeless Tobacco: | | | | | Never Used | | | | + +---+---+---+ + + +---------+ + | Alcohol Use | Drinks/Week | oz/Week | Comments | + + +---------+ + | No | 0 Standard drinks | 0.0 | | | | or equivalent | | | + + +---------+ + + + + | Sex Assigned at | Date Recorded | | | | + + + | Not on file | | + + + + + + + | Job Start Date | Occupation | Industry | + + + + | Not on file | Not on file | Not on file | + + + + + + + + | Travel History | Travel Start | Travel End | + + + + + + | No recent travel history available. | + + documented as of this encounter Last Filed Vital Signs + +---------+ + + | Vital Sign | Reading | Time Taken | Comments | + +---------+ + + | Blood Pressure | 203/102 | 10/18/2015 3:00 PM | | | | | PST | | + +---------+ + + | Pulse | 90 | 10/18/2015 2:33 PM | | | | | PST | | + +---------+ + + | Temperature | - | - | | + +---------+ + + | Respiratory Rate | - | - | | + +---------+ + + | Oxygen Saturation | - | - | | + +---------+ + + | Inhaled Oxygen | - | - | | | Concentration | | | | + +---------+ + + | Weight | - | - | | + +---------+ + + | Height | - | - | | + +---------+ + + | Body Mass Index | - | - | | + +---------+ + + documented in this encounter Medications at Time of Discharge + + + +---------+--------+ + | Medication | Sig | Dispensed | Refills | Start | End Date | | | | | | Date | | + + + +---------+--------+ + | Calcium-Magnesium | Take by mouth 2 | | 0 | | | | 750-465 MG TABS | times daily. | | | | | + + + +---------+--------+ + | chlorothiazide | Take 500 mg by mouth | | 0 | | | | (DIURIL) 500 MG | every morning. | | | | | | tablet | | | | | | + + + +---------+--------+ + | Cholecalciferol | Take by mouth. | | 0 | | | | (VITAMIN D PO) | | | | | | + + + +---------+--------+ + | Cyanocobalamin | Take by mouth. | | 0 | | | | (VITAMIN B 12 PO) | | | | | | + + + +---------+--------+ + | | Take 50 mg by mouth | | 0 | | | | hydrochlorothiazide | Daily. | | | | | | 50 mg tablet | | | | | | + + + +---------+--------+ + | levothyroxine | Take 200 mcg by | | 0 | | | | (SYNTHROID, | mouth every morning | | | | | | LEVOTHROID) 200 mcg | (before breakfast). | | | | | | tablet | | | | | | + + + +---------+--------+ + | Multiple Vitamin | Take by mouth | | 0 | | | | (THERAGRAN PO) | Daily. | | | | | + + + +---------+--------+ + | nabumetone | Take 750 mg by mouth | | 0 | | | | (RELAFEN) 750 mg | 3 times daily. | | | | | | tablet | | | | | | + + + +---------+--------+ + | potassium chloride | Take 10 mEq by mouth | | 0 | | | | (BRIEN QUILES) 10 | 2 times daily. | | | | | | MEQ ER tablet | | | | | | + + + +---------+--------+ + | traMADol (ULTRAM) | Take 50 mg by mouth | | 0 | | | | 50 mg tablet | every 6 hours as | | | | | | | needed for Pain. | | | | | + + + +---------+--------+ + documented as of this encounter Plan of Treatment Not on filedocumented as of this encounter Procedures + +--------+ + + + | Procedure Name | Priori | Date/Time | Associated Diagnosis | Comments | | | ty | | | | + +--------+ + + + | FL EPIDURAL STEROID | Routin | 10/18/2015 | Lumbar | Results for this | | INJECTION LUMBAR | e | 2:55 PM | radiculopathy | procedure are in the | | TRANSFORAMINAL | | PST | | results section. | + +--------+ + + + documented in this encounter Results FL CHARAN Lumbar Transforaminal (10/18/2015 2:55 PM PST) + + | Specimen | + + | | + + + + + | Narrative | Performed At | + + + | 10/18/2015 Bilateral Transforaminal Epidural Steroid Injections | [place] | | Diagnosis: Lumbar radiculopathy ICD-10 Code M54.16 Dede | [facility] | | P Post presents to the fluoroscopy suite for fluoroscopically-guided [facility] | | bilateral L4-L5 transforaminal epidural steroid injections as part | - IMAGING | | of conservative management for chronic pain with lumbar | | | radiculopathy and degenerative disk disease. After informed consent | | | was obtained, the patient lay in the prone position on the | | | fluoroscopy table. The areas were identified under fluoroscopic | | | guidance. The areas were prepped and draped in sterile fashion. A | | | 25-gauge, 1.5-inch needle was inserted into each region and | | | approximately 3 mL of buffered 1% lidocaine was infused. Then, a | | | 22-gauge spinal needle was inserted into the posterior superior | | | transforaminal space bilaterally and advanced into the epidural | | | space under fluoroscopic guidance. Confirmation into the epidural | | | space was obtained with infusion of approximately 1 mL of Omnipaque | | | contrast which showed epidural flow as well as nerve sheath flow. | | | Then, a combination of 2 mL of 1% lidocaine and 2 mL of 6 mg/mL | | | Celestone was infused, divided between the two sides. The patient | | | tolerated the procedure well without complications. Pre- and | | | post-procedure blood pressures were stable. The patient was given | | | verbal as well as written follow-up instructions. Prior to the | | | start of the procedure, the following were performed and/or | | | verified, including correct patient identity, correct site/side marked | | | and visible, agreement on the procedure to be done, correct patient | | | positioning and an accurate procedure consent form. Any safety | | | precautions based on clinical history and/or medication use have | | | been addressed. I personally performed the procedure above. | | | Estimated blood loss: Minimal Complications: None Findings: As | | | expected Anesthesia: Local 1% Lidocaine | | + + + + + + + + | Performing | Address | City/State/Zipcode | Phone Number | | Organization | | | | + + + + + | [facility] | [address] | [place], [place] | [phone] | | [facility] | | [address] | | | - IMAGING | | | | + + + + + documented in this encounter Visit Diagnoses + + | Diagnosis | + + | Lumbar radiculopathy Thoracic or lumbosacral neuritis or radiculitis, unspecified | + + documented in this encounter Administered Medications + +--------+ +-------+------+ + | Medication Order | MAR | Action | Dose | Rate | Site | | | Action | Date | | | | + +--------+ +-------+------+ + | betamethasone (CELESTONE | Given | 10/18/20 | 12 mg | | Other | | SOLUSPAN) injection 12 mg 12 mg, | | 15 3:00 | | | (Comment | | Intramuscular, EVERY 24 HOURS | | PM PST | | | ) | | INTERVAL, First dose on Sat | | | | | | | 10/18/15 at 1500, For 2 doses, | | | | | | | Shake well. Not for IV use., | | | | | | | Radiology | | | | | | + +--------+ +-------+------+ + +---+---+ | | | +---+---+ + +-------+ +-------+---+---+ | iohexol (OMNIPAQUE 300) 300 | Given | 10/18/20 | 2 mLs | | | | mg/mL injection 2 mL 2 mL, | | 15 2:57 | | | | | Other, ONCE PRN, Other, Starting | | PM PST | | | | | e 10/18/15 at 1440, For 1 dose, | | | | | | | Radiology | | | | | | + +-------+ +-------+---+---+ +---+---+ | | | +---+---+ + +-------+ +-------+---+---+ | lidocaine (PF) 1% injection 2 | Given | 10/18/20 | 2 mLs | | | | mL 2 mL, Other, ONCE, Tue | | 15 3:00 | | | | | 10/18/15 at 1500, For 1 dose, | | PM PST | | | | | Radiology | | | | | | + +-------+ +-------+---+---+ +---+---+ | | | +---+---+ + +-------+ +-------+---+ + | lidocaine buffered 1% injection | Given | 10/18/20 | 6 mLs | | Other | | 6 mL 6 mL, Intradermal, ONCE, | | 15 2:52 | | | (Comment | | 10/18/15 at 1500, For 1 dose, | | PM PST | | | ) | | Radiology | | | | | | + +-------+ +-------+---+ + +---+---+ | | | +---+---+ documented in this encounter"
--- OUTSIDE RECORDS SUMMARY | ~2019-09-30 | XMS | Encounter Summary ---
Demographics + + + | Address | [address] | | | [place] [address] | + + + | Home Phone | | + + + | Preferred Language | Unknown | + + + | Marital Status | Single | + + + | Latter-Day Affiliation | 1077 | + + + | Race | Unknown | + + + | Ethnic Group | Unknown | + + + Author + + + | Author | [facility] | | | and [place] | + + + | Organization | [facility] | | | and [place] | [...] Team Providers + +------+ + | Care Bronze Chaser Name | Role | Phone | + [...] | Lumbar | [place], | [address] | | | | | radiculopath | Clint Oliva MD | [place], | | | | | y | [address] | [place] | | | | | Procedures | [place] | [address] | | | | | [place] INJECT | [place] | Phone: | | | | | ANES/STEROID | [address] | [phone] | | | | | FORAMEN | Phone: | Fax: | | | | | LUMBAR/SACRA | [phone] | [phone] | | | | | L W IMG | Fax: | | | | | | GUIDE ,1 | [phone] | | | | | | L[place]EL [place] | | | | | | | [...] + + | 10/18/ | Hospital | [facility] | Clint Cárdenas | Lumbar radiculopathy | | 2015 | Encounter | MED CTR XRAY [address] | T, [address] | | | | | [place] | [place], [place] | | | | | [place] [address] | [address] | | | | | [phone] | | | | | | | [place]eter[place]ole | | +--------+ + + + + [...] 10/18/2015 Bilateral Transforaminal Epidural Steroid Injections | [facility] | | Diagnosis: Lumbar radiculopathy ICD-10 Code M54.16 Dede | [facility] | | P Post presents to the fluoroscopy suite for fluoroscopically-guided [facility] | | bilateral L4-L5 transforaminal epidural [...] ST. | [address] | [place], [place] | [phone] | | [facility] | | [address] | | | - IMAGING | | [...]
--- OUTSIDE RECORDS SUMMARY | ~2019-09-30 | XMS | Encounter Summary ---
Demographics + + + | Address | [address] | | | [place] [address] | + + + | Home Phone | | + + + | Preferred Language | Unknown | + + + | Marital Status | Single | + + + | Judaism Affiliation | 1077 | + + + | Race | Unknown | + + + | Ethnic Group | Unknown | + + + Author + + + | Author | [facility] | | | and [place] | + + + | Organization | [facility] | | | and [place] | + + + | Address | Unknown | + + + | Phone | Unavailable | + + + Support + + +---------+ + | Name | Relationship | Address | Phone | + + +---------+ + | None Listed | ECON | Unknown | | + + +---------+ + | Gunner Daniel | ECON | Unknown | | + + +---------+ + Care Team Providers + +------+ + | Care Foundation Stage Teacher Name | Role | Phone | + +------+ + | Gurdeep Adair DO | PCP | | + +------+ + Reason for Visit + + + | Reason | Comments | + + + | Back Pain | Low back pain that radiates into the left leg | + + + Evaluate & Treat (Routine) +--------+--------+ + + + + | Status | Reason | Specialty | Diagnoses / | Referred By | Referred To | | | | | Procedures | Contact | Contact | +--------+--------+ + + + + | Closed | | Physical | Diagnoses | Joselo, | Avi, | | | | Medicine and | Back pain | Rosalio Castrejon, | Clint Oliva MD | | | | Rehabilitatio | Spinal | [address] | [address] | | | | n | stenosis | [address] | [address] | | | | | | [place], | [place] | | | | | | [place] | [address] Phone: | | | | | | [address] | [phone] | | | | | | Phone: | Fax: | | | | | | [phone] | [phone] | | | | | | Fax: | | | | | | | [phone] | | +--------+--------+ + + + + Encounter Details +--------+---------+ + + + | Date | Type | Department | Care Team | Description | +--------+---------+ + + + | 10/06/ | Office | [facility] | Clint Cárdenas | Spinal stenosis, | | 2014 | Visit | PHYSIATRY [address] | [address] | lumbar (Primary Dx); | | | | [place], | [address] [place], [place] | Lumbar | | | | [place] [address] | [address] | radiculopathy; | | | | [phone] | | Foraminal stenosis | | | | | | of lumbar region; | | | | | | Spondylolisthesis | +--------+---------+ + + + Social History + +-------+ [...] this encounter Last Filed Vital Signs + + + + + | Vital Sign | Reading | Time Taken | Comments | + + + + + | Blood Pressure | 138/74 | 10/06/2015 10:45 AM | | | | | PST | | + + + + + | Pulse | 79 | 10/06/2015 10:45 AM | | | | | PST | | + + + + + | Temperature | - | - | | + + + + + | Respiratory Rate | - | - | | + + + + + | Oxygen Saturation | - | - | | + + + + + | Inhaled Oxygen | - | - | | | Concentration | | | | + + + + + | Weight | 106.6 kg (235 lb) | 10/06/2015 10:45 AM | | | | | PST | | + + + + + | Height | 170.2 cm (5' 7") | 10/06/2015 10:45 AM | | | | | PST | | + + + + + | Body Mass Index | 36.81 | 10/06/2015 10:45 AM | | | | | PST | | + + + + + documented in this encounter Patient Instructions Patient Instructions Vidhya Neely CMA - 10/06/2015 11:20 AM PST Follow-up at the hospital thirty minutes before your scheduled procedure to allow for time to check in. You may eat and drink as usual on the day of the procedure. If you are scheduled for an epidural injection do not take any blood thinning medications f or at least 5-7 days prior to your procedure unless you have been instructed by another phys ician not to discontinue blood thinning medications. If you are having a procedure other than an epidural injection (i.e. facet injection, media l branch block, SI joint injection or other joint injection) it is not absolutely necessary to discontinue blood thinning medications but doing so will decrease the risk of bruising or bleeding. If you have had a prior stroke, DVT or PE or if you are taking blood thinning medication be cause you have atrial fibrillation, a prosthetic cardiac valve replacement or heart stenting do not stop taking your blood thinning medications unless you have permission from your car diologist or primary care provider. All other medications should be taken as usual on the day of the procedure. Common blood thinning medications include: Aspirin (a baby aspirin is o.k.) Ibuprofen (Advil or Motrin) Naproxen (Aleve) Nabumetone (Relafen) Clopidogrel (Plavix) Dipyridamole/ASA (Aggrenox) Warfarin (Coumadin) Dabigatran (Pradaxa) Rivaroxaban (Xarelto) There are many others. If you have questions about your medications and whether or not you should stop any medications please contact our office. If you are having an epidural injection or if you take any medication for relaxation/sedati on on the day of the procedure you must provide a local bulk driver to take you home. For all procedur es it is recommended that someone else drive you home. documented in this encounter Progress Notes Clint Cárdenas MD - 10/06/2015 10:47 AM PST Clint Cárdenas MD [address] [facility], [address] [place], [place] [id number] FAX: PHYSICAL MEDICINE AND REHABILITATION H&P CHIEF COMPLAINT: Chief Complaint Patient presents with Back Pain Low back pain that radiates into the left leg HISTORY OF PRESENT ILLNESS: The patient is a 75 y.o. female being seen today at the [facility] of Dr. Josue for complaint of low back pain that began 30+ years ago. The patient reports that the pain started without any inciting event. The symptoms have been gradually worseni ng. She rates the pain as severe. The symptoms are daily. She describes the pain as aching, t hrobbing and tingling. The patient describes leg symptoms that occur on both sides. The buttock and leg symptoms account for greater than or equal to 50% of her symptoms. The leg symptoms are intermittent and the symptoms travel from the low back into both buttocks and sometimes further down the leg into the thigh, especially on the left. The patient does report numbness in the left l eg. She does not report weakness. The patient does not report any change in bowel or bladder function or saddle anesthesia re cently. Her symptoms improve with sitting. Her symptoms worsen with standing and walking. She has tried PT, Chiropactic, NSAIDS, Steroids and Injections. The patient had two prior steroid injections which were performed by a provider in [place] approximately 4 years ago . I do not have record of which injections were performed. She reports good relief with the first injection but not with the second. PAST MEDICAL HISTORY: Past Medical History Diagnosis Date Hypertension Gout Thyroid disease Unilateral primary osteoarthritis, right hip Spinal stenosis of lumbar region Other spondylosis with myelopathy, thoracolumbar region Poor circulation Spinal stenosis, lumbar 10/06/2015 Foraminal stenosis of lumbar region 10/06/2015 Spondylolisthesis 10/06/2015 Lumbar radiculopathy 10/06/2015 PAST SURGICAL HISTORY: Past Surgical History Procedure Laterality Date Total knee arthroplasty Carpal tunnel release Appendectomy Cholecystectomy Hysterectomy Myomectomy CURRENT MEDICATIONS: Current Outpatient Prescriptions Medication Sig Dispense Refill Calcium-Magnesium 750-465 MG TABS Take by mouth 2 times daily. chlorothiazide (DIURIL) 500 MG tablet Take 500 mg by mouth every morning. Cholecalciferol (VITAMIN D PO) Take by mouth. Cyanocobalamin (VITAMIN B 12 PO) Take by mouth. hydrochlorothiazide 50 mg tablet Take 50 mg by mouth Daily. levothyroxine (SYNTHROID, LEVOTHROID) 200 mcg tablet Take 200 mcg by mouth every mornin g (before breakfast). Multiple Vitamin (THERAGRAN PO) Take by mouth Daily. nabumetone (RELAFEN) 750 mg tablet Take 750 mg by mouth 3 times daily. potassium chloride (K-DUR,KLOR-CON) 10 MEQ ER tablet Take 10 mEq by mouth 2 times daily . traMADol (ULTRAM) 50 mg tablet Take 50 mg by mouth every 6 hours as needed for Pain. No current facility-administered medications for this visit. ALLERGIES: Allergies Allergen Reactions Sulfa Antibiotics Rash SOCIAL HISTORY: The patient reports that she has never smoked. She has never used smokeless tobacco. She r eports that she does not drink alcohol or use illicit drugs. FAMILY HISTORY: Family History Problem Relation Age of Onset Heart disease Father Cancer Maternal Grandmother Alcohol abuse Other Relation unknown Arthritis Other Relation unknown Hypertension Other Relation unknown REVIEW OF SYSTEMS: GENERALLY: No fever, no night sweats, no anemia, + fatigue, + recent profound weight munoz ges. EYES: No eye problems, no use of corrective lenses, no eye injury, no double vision, no bl indness. EARS, NOSE, AND THROAT: No changes in taste or smell, no hearing difficulty, no ringing in the ears, no ear drainage, no dizziness, no voice changes, no difficulty swallowing, + sign ificant snoring, no sleep apnea, + sinus problems, + major dental work. NEUROLOGICALLY: Please see the review of systems discussed above in the history of present illness. In addition, the patient has numbness/pain of legs, muscle aching, coordination d ifficulty, change in walk and pain in back. PSYCHIATRIC: No depression, no sleep disorders, no anxiety, no bipolar disorder, no psycho tic episodes. CARDIOVASCULAR: No heart attacks, no heart murmur, no heart fluttering, no chest pain, no ankle swelling. LUNG DISEASE: No shortness of breath, no cough, no tuberculosis, no bloody cough, no asth ma, no emphysema/COPD. GASTROINTESTINAL: No bowel disease, no nausea or vomiting, no rectal bleeding, no constipa tion, no stool incontinence, no liver disease, no gallbladder disease, no abdominal pain, no ulcers. KIDNEY DISEASE: No urinary frequency, no painful or difficult urination, no incontinence. ENDOCRINE: No diabetes, + thyroid disease, no osteopenia or osteoporosis, no breast draina ge. SKIN: No breast lumps, no skin changes, no rashes, no itches. HEMATOLOGIC/LYMPHATIC: No enlarged lymph nodes, no easy or unusual bleeding, no personal h istory of cancer. RHEUMATOLOGIC: + joint arthritis, no rheumatoid arthritis. PHYSICAL EXAMINATION: Blood pressure 138/74, pulse 79, height 1.702 m (5' 7"), weight 106.595 kg (235 lb). Body m ass index is 36.8 kg/(m^2). GENERAL: The patient is well developed and well nourished. She does not appear uncomfortab le when seated. HEENT: HEAD/FACE: EYES: Normocephalic and atraumatic. There are no areas of recent trauma. Normal sclerae without icterus. SKIN Limited skin exam shows no significant rashes or lesions. There are not scars in the lumbar region. CHEST: The patient is in no acute respiratory distress with unlabored respirations. HEART: There is mild lower extremity edema. ABDOMEN: The patient is overweight. NEUROLOGIC: The patient is awake, alert, and oriented to time, place, person. She follows simple and complex commands. Her speech is fluent. She comprehends speech well. She has no apparent deficits with short or supervisor intermediates memory. She has appropriate fund of knowledge Cranial nerves 2-12 appear grossly intact. Sensory exam does not show diminished sensation to light touch in the upper and lower extre mities at this time. REFLEX: RIGHT LEFT PATELLAR 2+ 0 ACHILLES 0 0 PLANTAR Downgoing Downgoing MUSCULOSKELETAL There is no major palpable deformity of the spine. Straight leg raise and slump-sit are negative. Philip's maneuver and impingement testing were negative for any groin pain. There was no tenderness to palpation over the greater tr ochanters or sacral sulci. The patient localized the majority of the pain to the L4-L5 alex on and from there down across the buttocks. Lumbar facet loading was negative. Strength te sting showed 5/5 strength throughout the lower extremities. The patient was able to heel an d toe walk without difficulty. There was no redness, effusion, warmth or joint line tendern ess in the knees or ankles. RADIOGRAPHIC REVIEW: The patient's imaging was reviewed in detail with the patient today during the visit. The MRI from 09/05/2015 shows spinal at L3-L4 and L4-L5 stenosis as well as foraminal stenosis wh ich is severe at L3-L4 on the left. She has spondylolisthesis at L3-L4 and L4-L5. IMPRESSION: Encounter Diagnoses Name Primary? Lumbar radiculopathy Spinal stenosis, lumbar Yes Foraminal stenosis of lumbar region Spondylolisthesis PLAN: 1. Physical therapy was discussed with the patient. She was advised that this is something I am willing to prescribe for her. She has tried PT in the past and didn't seem interested in trying additional PT at this time. 2. Medications were discussed with the patient. We discussed the fdc effects of NSAI Ds on the stomach, kidneys and her heart. She states that this has been monitored by her PC P. She was informed that gabapentin may be warranted in the future if injections fail to hel p. 3. Injections were discussed with the patient. She was advised that given her history of p oor response to prior injections and severity of the stenosis it is quite likely that she ma y not have prolonged benefit with injections. She did wish to try it anyway as she is hoping to avoid surgery. I agreed to try injections one time to see how much relief she gets and w ill determine thereafter if it is a viable treatment option for her. I recommended that we try bilateral L4-L5 TFESI.. 4. I do wonder if there is some instability at L3-L4 and L4-L5. X-rays of the lumbar spin e with flexion and extension views were discussed. She was informed that I would not have he r do the xrays unless she was considering surgical intervention. She does not want to consi rainer surgery but may be willing to consider it in the future if she has neurologic deficits o r fails to have relief with other measures. 5. I discussed with the patient that the best thing to do for back pain, fdc, is get ting to and/or maintaining an appropriate weight, core strengthening and avoiding aggravatin g activities by using appropriate body mechanics/ergonomics. We reviewed a home exercise pro gram including aerobic conditioning, isometric core strengthening and gentle stretching. Elmer i chi was discussed as a potential option, she was also encouraged to try doing an aerobic e xercise such using a recumbent exercise bike. ELECTRONICALLY EDITED AND SIGNED BY: Clint Cárdenas MD, 10/06/2015 Scribed by: Vidhya Neely MA for Dr. Clint Cárdenas on 10/06/2015 documented in this encounter Plan of Treatment Not on filedocumented as of this encounter Results [place] CHARAN Lumbar Transforaminal (10/18/2015 2:55 PM PST) + + | Specimen | + + | | + + + + + | Narrative | Performed At | + + + | 10/18/2015 Bilateral Transforaminal Epidural Steroid Injections | [place] | | Diagnosis: Lumbar radiculopathy ICD-10 Code M54.16 Dede | [facility] | | P Post presents to the fluoroscopy suite for fluoroscopically-guided [facility] | | bilateral L4-L5 transforaminal epidural steroid [...] | + + + + + | [facility] | [address] | [place] | [phone] | | [facility] | | [id number] | | | - IMAGING | | | | + + + + + documented in this encounter Visit Diagnoses + + | Diagnosis | + + | Spinal stenosis, lumbar - Primary Spinal stenosis, lumbar region, without neurogenic | | claudication | + + | Lumbar radiculopathy Thoracic or lumbosacral neuritis or radiculitis, unspecified | + + | Foraminal stenosis of lumbar region Spinal stenosis, lumbar region, without | | neurogenic claudication | + + | Spondylolisthesis Congenital spondylolisthesis | + + documented in this encounter
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
--- OUTSIDE RECORDS SUMMARY | ~2019-09-30 | XMS | Clinical Summary ---
Demographics + + + | Address | [address] | | | [place] [address] | + + + | Home Phone | | + + + | Preferred Language | Unknown | + + + | Marital Status | Single | + + + | Yazidism Affiliation | 1077 | + + + | Race | Unknown | + + + | Ethnic Group | Unknown | + + + Author + + + | Author | [facility] | | | and [place] | + + + | Organization | [facility] | | | and [place] | [...] Team Providers + +------+ + | Care Nc Manager Name | Role | Phone | + +------+ + | Gurdeep Adair DO | PCP | | + +------+ + Allergies + + + + + + | Active Allergy | Reactions | Severity | Noted | Comments | | | | | Date | | + + + + + + | Sulfa Antibiotics | Rash | Low | 10/04/20 | | | | | | 15 | | + + + + + + Medications + + + +---------+------+------+-------+ | Medication | Sig | Dispensed | Refills | Star | End | Statu | | | | | | t | Date | s | | | | | | Date | | | + + + +---------+------+------+-------+ | potassium chloride | Take 10 mEq by mouth | | 0 | | | Activ | | (BRIEN QUILES) 10 | 2 times daily. | | | | | e | | MEQ ER tablet | | | | | | | + + + +---------+------+------+-------+ | | Take 50 mg by mouth | | 0 | | | Activ | | hydrochlorothiazide | Daily. | | | | | e | | 50 mg tablet | | | | | | | + + + +---------+------+------+-------+ | levothyroxine | Take 200 mcg by | | 0 | | | Activ | | (SYNTHROID, | mouth every morning | | | | | e | | LEVOTHROID) 200 mcg | (before breakfast). | | | | | | | tablet | | | | | | | + + + +---------+------+------+-------+ | Cholecalciferol | Take by mouth. | | 0 | | | Activ | | (VITAMIN D PO) | | | | | | e | + + + +---------+------+------+-------+ | Calcium-Magnesium | Take by mouth 2 | | 0 | | | Activ | | 750-465 MG TABS | times daily. | | | | | e | + + + +---------+------+------+-------+ | Multiple Vitamin | Take by mouth | | 0 | | | Activ | | (THERAGRAN PO) | Daily. | | | | | e | + + + +---------+------+------+-------+ | nabumetone | Take 750 mg by mouth | | 0 | | | Activ | | (RELAFEN) 750 mg | 3 times daily. | | | | | e | | tablet | | | | | | | + + + +---------+------+------+-------+ | traMADol (ULTRAM) | Take 50 mg by mouth | | 0 | | | Activ | | 50 mg tablet | every 6 hours as | | | | | e | | | needed for Pain. | | | | | | + + + +---------+------+------+-------+ | chlorothiazide | Take 500 mg by mouth | | 0 | | | Activ | | (DIURIL) 500 MG | every morning. | | | | | e | | tablet | | | | | | | + + + +---------+------+------+-------+ | Cyanocobalamin | Take by mouth. | | 0 | | | Activ | | (VITAMIN B 12 PO) | | | | | | e | + + + +---------+------+------+-------+ Active Problems + + + | Problem | Noted Date | + + + | Spinal stenosis, lumbar | 10/06/2015 | + + + | Foraminal stenosis of lumbar region | 10/06/2015 | + + + | Spondylolisthesis | 10/06/2015 | + + + | Lumbar radiculopathy | 10/06/2015 | + + + Family History + + +------+ + | Medical History | Relation | Name | Comments | + + +------+ + | Heart disease | Father | | | + + +------+ + | Cancer | Maternal | | | | | Grandmoth | | | | | er | | | + + +------+ + | Alcohol abuse | Other | | Relation unknown | + + +------+ + | Arthritis | Other | | Relation unknown | + + +------+ + | Hypertension | Other | | Relation unknown | + + +------+ + + +------+ + + | Relation | Name | Status | Comments | + +------+ + + | Child | | Alive | | + +------+ + + | Child | | Alive | | + +------+ + + | Child | | Alive | | + +------+ + + | Child | | Alive | | + +------+ + + | Father | | | Heart | | | | (Age | | | | | 87) | | + +------+ + + | Maternal Grandmother | | | Cancer | | | | (Age | | | | | 66) | | + +------+ + + | Mother | | Alive | | + +------+ + + | Other | | | | + +------+ + + Social History + +-------+ +--------+------+ [...] recent travel history available. | + + Last Filed Vital Signs + + + + + | Vital Sign | Reading | Time Taken | Comments | + + + + + | Blood Pressure | 203/102 | 10/18/2015 3:00 PM | | | | | PST | | + + + + + | Pulse | 90 | [...] | | + + + + + Plan of Treatment + + + + + | Health Maintenance | Due Date | Last Done | Comments | + + + + + | Vaccine: | | | | | Dtap/Tdap/Td (1 - | 0 | | | | Tdap) | | | | + + + + + | Vaccine: Zoster (1 | | | | | of 2) | 1 | | | + + + + + | Breast Cancer | | | | | Screening | 6 | | | + + + + + | Vaccine: | | | | | Pneumococcal 65+ (1 | 6 | | | | of 2 - PCV13) | | | | + + + + + | Adult Annual | | | | | Wellness Visit | 9 | | | + + + + + | Vaccine: Influenza | | 09/04/2018 | | | (#1) | 9 | | | + + + + + Results Not on filefrom Last 3 Months Insurance + +--------+ +--------+ +---------+--------+ | Payer | Benefi | Subscriber | Effect | Phone | Address | Type | | | t Plan | ID | emerita | | | | | | / | | Dates | | | | | | Group | | | | | | + +--------+ +--------+ +---------+--------+ | MEDICARE | MEDICA | [id number] | 03/04/20 | [phone] | | Medica | | | RE | | 06-Pre | 5 | | re | | | PART A | | sent | | | | | | AND B | | | | | | + +--------+ +--------+ +---------+--------+ | [facility] | [place] | [id number] | | [phone] | | PPO | | | HLTH | | 015-Pr | 2 | | | | | [place] | | esent | | | | | | HCARE | | | | | | | | PPO | | | | | | + +--------+ +--------+ +---------+--------+ + +--------+ +--------+ + + | Guarantor Name | Accoun | Relation to | Date | Phone | Billing Address | | | t Type | Patient | of | | | | | | | | | | + +--------+ +--------+ + + | Dede Collier | Person | Self | [birth year] | [address] | | | al/Fam | | 1940 | [phone] | [place] [address] | | | patricio | | | 8 (Home) | | | | | | | [phone] | | | | | | | 7 (Work) | | + +--------+ +--------+ + + Advance Directives + + + + + | Type | Date Recorded | Patient | Explanation | | | | Director News | | + + + + + | Power of | | | | | Synthetic Cloth Binding Cutter | | | | + + + + + | Advance | | | | | Directive | | | | + + + + +
--- OUTSIDE RECORDS SUMMARY | ~2019-09-30 | XMS | Encounter Summary ---
Demographics + + + | Address | [address] | | | [place] [address] | + + + | Home Phone | | + + + | Preferred Language | Unknown | + + + | Marital Status | Single | + + + | Jew Affiliation | 1077 | + + + | Race | Unknown | + + + | Ethnic Group | Unknown | + + + Author + + + | Author | [facility] | | | and [place] | + + + | Organization | [facility] | | | and [place] | [...] Team Providers + +------+ + | Care Merchandise Coordinator Name | Role | Phone | + +------+ + | Gurdeep Adair DO | PCP | | + +------+ + Encounter Details +--------+ + + + + | Date | Type | Department | Care Team | Description | +--------+ + + + + | 10/04/ | Abstract | [facility] [place] | Clint Cárdenas | | | 2014 | | PHYSIATRY [address] | T, MD [address] | | | | | [place], | [place], [place] | | | | | [place] [address] | [address] | | | | | [phone] | | | +--------+ + + + + [...] + + documented as of this encounter Plan of Treatment Not on filedocumented as of this encounter Visit Diagnoses Not on filedocumented in this encounter"
--- OUTSIDE RECORDS SUMMARY | ~2019-09-30 | XMS | Encounter Summary ---
Demographics + + + | Address | [address] | | | [place] [address] | + + + | Home Phone | | + + + | Preferred Language | Unknown | + + + | Marital Status | Single | + + + | Anabaptism Affiliation | 1077 | + + + | Race | Unknown | + + + | Ethnic Group | Unknown | + + + Author + + + | Author | [facility] | | | and [place] | + + + | Organization | [facility] | | | and [place] [...] Team Providers + +------+ + | Care General Store Manager Name | Role | Phone | [...] | | [address] | [place] [address] | | | | | [address] | [phone] | | | | | [place] [address] | | | | | | [phone] | | | +--------+---------+ + + + [...]
--- OUTSIDE RECORDS SUMMARY | ~2019-09-30 | XMS | Encounter Summary ---
Demographics + + + | Address | [address] | | | [place] [address] | + + + | Home Phone | | + + + | Preferred Language | Unknown | + + + | Marital Status | Single | + + + | Buddhist Affiliation | 1077 | + + + | Race | Unknown | + + + | Ethnic Group | Unknown | + + + Author + + + | Author | [facility] | | | and [place] | + + + | Organization | [facility] | | | and [place] | [...] Team Providers + +------+ + | Care Automobile Rental Agent Name | Role | Phone | + [...] [address] | | | | | [place], | [place], [place] | | | | | [place] [address] | [address] | | | | | [phone] | | | +--------+ + + + [...]
--- OUTSIDE RECORDS SUMMARY | ~2019-09-30 | XMS | Encounter Summary ---
Demographics + + + | Address | [address] | | | [place] [address] | + + + | Home Phone | | + + + | Preferred Language | Unknown | + + + | Marital Status | Single | + + + | Sabianist Affiliation | 1077 | + + + | Race | Unknown | + + + | Ethnic Group | Unknown | + + + Author + + + | Author | [facility] | | | and [place] | + + + | Organization | [facility] | | | and [...] Team Providers + +------+ + | Care Clinical Team Manager Name | Role | Phone | [...] | | | | | [place] | [address] Phone: | | | | | | [address] | [phone] | | | | | | Phone: | Fax: | | | | | | [phone] | [phone] | | | | | | Fax: | | | | | | | [phone] | | +--------+--------+ + + + + Encounter Details +--------+---------+ + + + | Date | Type | Department | Care Team | Description | +--------+---------+ + + + | 10/06/ | Office | [facility] | Clint Cárdenas | Spinal stenosis, | | 2014 | Visit | PHYSIATRY [address] | TMD [address] | lumbar (Primary Dx); | | | | [place], | [place], [place] | Lumbar | | | | [place] [address] | [address] | radiculopathy; | | | | [phone] | | Foraminal stenosis | | | [...] of the procedure you must provide a catering driver to take you home. For all procedur es it is recommended that someone else drive you home. documented in this encounter Progress Notes Clint Cárdenas MD - 10/06/2015 10:47 AM PST Clint Cárdenas MD [address] [facility], [address] [place], [place] [id number] FAX: PHYSICAL MEDICINE AND REHABILITATION H&P CHIEF COMPLAINT: Chief Complaint Patient presents with Back Pain Low back pain that radiates into the left leg HISTORY OF PRESENT ILLNESS: The patient is a 75 y.o. female being seen today at the [facility] Dr. Josue for complaint of low [...] which were performed by a provider in [place] approximately 4 years ago . I do [...] has no apparent deficits with short or terminal computer operator memory. She has appropriate fund of knowledge [...] discussed with the patient. We discussed the mcfp effects of NSAI Ds on the stomach, [...] best thing to do for back pain, mcfp, is get ting to and/or maintaining an [...] 10/18/2015 Bilateral Transforaminal Epidural Steroid Injections | [place] | | Diagnosis: Lumbar radiculopathy ICD-10 Code M54.16 Dede | [facility] | | P Post presents to the fluoroscopy suite for fluoroscopically-guided [facility] | | bilateral L4-L5 transforaminal epidural steroid [...] | + + + + + | [facility] | [address] | [place] | [phone] | | [facility] | | [address] | | | - IMAGING | | [...]
--- OUTSIDE RECORDS SUMMARY | ~2019-09-30 | XMS | Clinical Summary ---
Demographics + + + | Address | [address] | | | [place] [address] | + + + | Home Phone | | + + + | Preferred Language | Unknown | + + + | Marital Status | Single | + + + | Spiritism Affiliation | 1077 | + + + | Race | Unknown | + + + | Ethnic Group | Unknown | + + + Author + + + | Author | [facility] | | | and [place] | + + + | Organization | [facility] | | | and [...] Team Providers + +------+ + | Care Field Pipelines Supervisor Name | Role | Phone | + [...] +--------+ +---------+--------+ | MEDICARE | MEDICA | [id number] | 03/04/20 | [phone] | | Medica | | | RE | | 06-Pre | 5 | | re | | | PART A | | sent | | | | | | AND B | | | | | | + +--------+ +--------+ +---------+--------+ | [facility] | [place] | [id number] | [phone] | | PPO | [...] | 1940 | [phone] | [place] [address] | | | patricio | | | 8 (Home) | | | | | | | [phone] | | | | | | | 7 (Work) | | + +--------+ +--------+ + + Advance Directives + + + + + | Type | Date Recorded | Patient | Explanation | | | | Languages And Literature Instructor | | + + + + + | Power of | | | | | Senior Game Developer | | | | + + + + + | Advance | | | | | Directive | | | | + + + + +
[~2019-09-30 11:47] MED LIST changes: +ASPIRIN EC325 MG PO; +CHLOROTHIAZIDE PO; +CYMBALTA60 MG PO; +GABAPENTIN300 MG PO; +HYDROCHLOROTHIA25 MG PO; +HYDROMORPHONE HC4 MG PO; +KEFLEX500 MG PO; +METOPROLOL ER-1 EAC1; +METOPROLOL SUCC50 MG PO; +NABUMETONE750 MG PO; +OMEGA 3 1,0001 EACH PO; +POLYETHYLENE GL17 GM PO; +SENNA LAX8.6 MG PO; +XALATAN2.5 ML OU
== END 2019-09-30 16:11 | disposition home or self-care (01) ==
LOC: ED 11:47
DX: R53.1 Weakness (principal); Z88.2 Allergy status to sulfonamides; Z79.899 Other long term (current) drug therapy; Z79.82 Long term (current) use of aspirin
CPT/HCPCS: 36415; 80053; 83735; 84484; 85025; 96360; 99285-25; J7040

== ENCOUNTER 2020-04-21 16:10 | Observation (INO) | payer MEDICARE, OTHER ==
[~2020-04-21] VITALS: Ht 165.1 cm; Wt 103.9 kg
[2020-04-21] MEDS ORDERED: MULTI VITAMIN1 EACH PO (16:43)
[2020-04-21] MEDS ORDERED: LYRICA25 MG PO (17:44)
--- NOTE | 2020-04-21 18:09 | EKG ---
[facility] [address] [facility] [place], [place] [address] Signed Normal sinus rhythm Normal ECG When compared with ECG of 03-JUN-2017 16:16, T wave inversion now evident in Inferior leads Confirmed by COURTNEY STONE DO ([id number]) on 04/21/2020 6:09:35 PM Electronically Signed By: COURTNEY STONE DO 04/21/20 1809 PATIENT NAME: JAYMIE SCHAFFER Electrocardiogram DATE OF : 42 PHYSICIAN: COURTNEY STONE DO REPORT #: [id number] REPORT IS CONFIDENTIAL AND NOT TO BE RELEASED WITHOUT AUTHORIZATION
--- NOTE | 2020-04-21 19:55 | NUR ---
PT ARRIVED FROM ED VIA STRETCHER
--- NOTE | 2020-04-21 20:16 | NUR ---
VITALS DONE AND CHARTED. PUT ON TELE. HELPED PT GET HER PANTS OFF. PUT ON HOSPITAL SOCKS. ICE WATER ,SANDWICH BOX , SHIPS AND A PUDDING GIVEN PER PT REQUEST. BEDSIDE TABLE AND CALL LIGHT IN REACH.
--- NOTE | 2020-04-21 20:18 | NUR ---
PT ARRIVED TO [facility] AT 1953. SHE WAS ABLE TO AMBULATE OVER TO BED. SHE IS ALERT AND ORIENTED AND STATES SHE HAS SOME LEFT SIDED WEAKNESS. SHE NEEDED SOME ASSISTANCE GETTING HER LEGS IN BED. PT STATES SHE USES A CANE AT HOME AND HER BALANCE IS OFF. SHE SWALLOWS FINE AND HAS A SANDWICH BOX AND ICEWATER AT BEDSIDE. PT'S HX IS COMPLETED AT THIS TIME AND SHE DENIES FURTHER NEEDS. ORIENTED PT TO UNIT/CALL LIGHT AND CALL LIGHT IS CLOSE.
--- NOTE | 2020-04-21 23:42 | NUR ---
RESTING, NO C/O PAIN OR SOB, TELE IN PLACE, NSR WITH SVPBS, USES CALL LIGHT WELL, FLUIDS AT BEDSDIE
--- NOTE | 2020-04-22 02:50 | NUR ---
PT AWAKES EASILY, TELE#[address], ON ROOM AIR, DENIES C/O SOB OR DISTRESS. DENIES NEED TO GET UP TO URINATE. CONTINUES TO HAVE WEAKNESS L ARM AND LEG. AWARE OF NEED FOR UA. CALL LIGHT AND FLUIDS AT BEDSIDE
--- NOTE | 2020-04-22 03:22 | NUR ---
RESTING, EYES CLOSED, NO DISTRESS, ON ROOM AIR. F/C PATENT,
--- NOTE | 2020-04-22 06:35 | NUR ---
pt taken for MRI by NIYA gutierrez
--- NOTE | 2020-04-22 07:14 | NUR ---
RECIEVED REPORT FROM Leif MILLER RN. PATIENT LYING IN BED. DENIES PAIN OR DISCOMFORT AT THIS TIME. INTRODUCED SELF TO PATIENT, TELEMETRY REPLACED. STATES SHE WANTS TO GO HOME TODAY. DENIES OTHER NEEDS. CALL LIGHT IN REACH, BED RAILS UP X2.
[2020-04-22] MEDS ORDERED: KETOCONAZOLE15 GM TOP (07:45)
[2020-04-22] MEDS ORDERED: LIDOCAINE1 EACH TOP (07:46)
[2020-04-22] MEDS ORDERED: PREGABALIN100 MG PO (07:47)
[2020-04-22] MEDS ORDERED: DULOXETINE HCL30 MG PO (07:47)
--- NOTE | 2020-04-22 09:32 | NUR ---
ASSESSMENT COMPLETED. PATIENT STATES HER LEFT HAND AND ARM HAS LESS TINGLING THAN SHE HAD. STATES TONGUE IS NUMB, LEFT OF FACE IS STILL NUMB AND LEFT LEG CONTINUES WITH DECREASED SENSATION. STATES THE MOVEMENT IN LEFT LEG HAS ALSO IMPROVED. DENIES PAIN AND OTHER NEEDS. CALL LIGHT IN REACH. SITTING ON EDGE OF BED, EATING BREAKFAST.
--- NOTE | 2020-04-22 09:38 | NUR ---
PATIENT IS SITTING AT BEDSIDE, FINISHED WITH BREAKFAST. RN IN TO ASESS. VITALS AND I&OS DONE AND CHARTED. CALL LIGHT IN REACH.
--- NOTE | 2020-04-22 10:07 | NUR ---
MED REC COMPLETE
--- NOTE | 2020-04-22 11:25 | NUR ---
LYING ON LEFT SIDE AT THIS TIME, TALKING ON THE PHONE.
--- NOTE | 2020-04-22 12:52 | NUR ---
PATIENT'S DAUGHTER IN LAW IN TO SEE PATIENT, STATES PATIENT DID NOT RECOGNIZE HER. CONTINUES TO ANSWER QUESTIONS APPROPRIATELY WHEN ASKED FOR STAFF. ORIENTED X4. SITTING ON EDGE OF BED AT THIS TIME ON PHONE.
--- NOTE | 2020-04-22 13:36 | NUR ---
PATIENT RESTING IN BED, EYES CLOSED. VITALS AND I&OS CHARTED. CALL LIGHT IN REACH, NO OTHER NEEDS AT THIS TIME.
--- NOTE | 2020-04-22 14:43 | NUR ---
ASSESSMENT COMPLETED. ANSWERS QUESTIONS ASKED WITH WRONG ANSWERS, MELL THEN ANSWERS THEM CORRECTLY. STRENGTH IN LEFT HAND SLIGHTLY IMPROVED, CONTINUES WITH SLIGHT LEFT FACIAL DROOP AND MINOR DRIFT IN LEFT LEG. DENIES PAIN OR DISCOMFORT AT THIS TIME. ICE WATER PROVIDED. DENIES OTHER NEEDS AT THIS TIME. CALL LIGHT IN REACH.
--- NOTE | 2020-04-22 15:55 | NUR ---
SPOKE WITH PATIENT AND GRANDSON SHAKILA IN ROOM. PATIENT LIVES IN HOUSE WITH SHAKILA. HE IS NOT WORKING AT THIS TIME, BUT IS LOOKING FOR A JOB. HE WILL NOT BE HOME THIS WEEKEND HE HAS A CAMPING TRIP WITH HIS FATHER PLANNED. PATIENT STILL DRIVES AND IS RETIRED. DISCUSSED SHE SHOULD NOT DRIVE UNTIL SHE SEES PCP. PATIENT WISHES TO RETURN HOME AT DISCHARGE AND IS HOPING TO GO HOME TOMORROW. SHE HAS A CANE AND WALKER AT HOME. SHE DOESN'T USUALLY USE EITHER. SHE CARRIES HER CELL PHONE WITH HER USUALLY BECAUSE SHE HAD SEVERAL FALLS LAST YEAR AND SHE KNOWS SHE MAY NEED TO CALL FOR HELP. DISCUSSED LIFE ALERT. SHE STATES SHE DOESN'T HAVE THE MONEY FOR THAT. SHE FEELS SHE HAS GOOD RX COVERAGE AND CAN AFFORD MEDICATIONS. SHE GETS HELP THROUGH [employer] FOR HELP WITH UTILITIES ONCE A YEAR. SHE GETS A FOOD BASKET THROUGH [facility] [facility]. ASKED IF I CAN HAVE THE CHW FROM HER PCP CLINIC CONNECT WITH HER IN CASE THEY CAN HELP HER WITH OTHER RESOURCES. SHE IS AGREEABLE TO THIS. SHE STATES HER HOUSE HAS 4 STEPS IN WITH RAIL AND STAIRS TO BASEMENT WHERE LAUNDRY IS. SHE WILL HAVE SHAKILA DO LAUNDRY FOR NOW. SHE STATES SHE HAS TWO SISTERS IN [place]. ONE IS COMING TOMORROW TO STAY WITH HER AND THE OTHER WILL TAKE A TURN AFTER THAT. SHE DOES NOT WANT TO DISCUSS GOING ANYWHERE BUT HOME. DISCUSSED THAT DR NATION WILL BE HERE TOMORROW AND THEY CAN LOOK AT WHERE SHE IS AFTER MORE THERAPY AND WHAT HER NEEDS WILL BE. SHE WANTS TO DO OUTPATIENT THERAPY. SHE STATES SHE HAS BEEN TO THE "[facility] I SHOULD BUY ST[facility]". PATIENT HAS NO OTHER QUESTIONS AT THIS TIME.
--- NOTE | 2020-04-22 17:43 | NUR ---
PATIENT AMBULATES IN ROOM WITH 1 PERSON ASSIST, WALKER AND GAIT BELT. DENIES PAIN. CONTINUES WITH LEFT SIDED WEAKNESS WITH NUMBNESS AND TINGLING IN LEFT ARM AND NUMBESS TO LEFT LEG AND LEFT SIDE OF FACE. ANSWERS QUESTIONS APPROPRIATELY. NO CHANGES IN VISION NOTED PER PATIENT AND ASSESSMENTS. CALL LIGHT IN REACH, BED RAILS UP X2. OCCASIONALLY GETTING UP WITHOUT ASSISTANCE, BED ALARM ACTIVATED.
--- NOTE | 2020-04-22 18:17 | NUR ---
PATIENT SITTING ON SIDE OF BED FINISHING DINNER. VITALS AND I&OS DONE AND CHARTED. WILL NOTIFY RN OF ELEVATED BP CALL LIGHT IN REACH
--- NOTE | 2020-04-22 21:02 | NUR ---
VACUUM BOTTLE ASSEMBLER ROUNDING NOTE. PT UP TO BATHROOM WITH PRIMARY RN. NEEDS DENIED AT THIS TIME. ICE WATER REFILLED AND PUDDING PROVIDED. CALL LIGHT IN REACH.
--- NOTE | 2020-04-22 21:39 | NUR ---
Up to br, tolerated well, voided, back to bed, 1PA/FWW and gait belt in place. no c/o CP or sob, tele#[address] SR reading. SL patent. toleratiang fluids and diet well
--- NOTE | 2020-04-23 01:01 | NUR ---
Resting, on room air, eyes closed, resp even,unlabored, call light and fluids at bedside
--- NOTE | 2020-04-23 02:17 | NUR ---
RESTING, EYES CLOSED, ON ROOM AIR. CALL LIGHT AND FLUIDS AT BEDSIDE, TELE#[address]
--- NOTE | 2020-04-23 05:51 | NUR ---
Slept off and on this shift, declined tylenol, c/o back discomfort, chronic. on room air, sl patent. improving left sided stamine and gait noted. Up to br several times thi sshift, voided QS urine, no bm. 1PA/FWW, improved l sided residul weakness of arm and leg noted. Coop. Tolerating diet and fluids well, no n/v. uses call light appropriately, Tele#[address] SR reading with occassional non sustained SPVCs. no c/o sob or CP
--- NOTE | 2020-04-23 05:58 | NUR ---
PATIENT RESTING IN BED, AMBULATED TO BATHROOM TO VOID AND BACK TO BEDSIDE. PATIENT REQUESTED A BACK RUB WITH SKIN CARE. RN AT BEDSIDE. NO FURTHER NEEDS AT THIS TIME.
--- NOTE | 2020-04-23 07:40 | NUR ---
RECIEVED REPORT FROM Leif MILLER RN. ASSESSMENT COMPLETED AT THIS TIME. IV FLUSHED AND WRAPPED IN [place]. STATES SOME SORENESS IN LEFT SHOULDER THIS MORNING.
--- NOTE | 2020-04-23 11:06 | NUR ---
PATIENT IN BED RESTING. ASKED PATIENT IF SHE WATNED AM CARE AND ORAL CARE SHE SAID SHE ALREADY DID IT. CALL LIGHT IN REACH. NO FURTHER NEEDS AT THIS TIME.
--- NOTE | 2020-04-23 11:56 | NUR ---
Lying with head of bed elevated. Denies needs at this time. Call light in reach. Bed rails up X2.
--- NOTE | 2020-04-23 14:17 | NUR ---
Assessment completed. No changes from previous AM assessment noted at this time. Lotion applied to back for itchiness. Denies other needs at this time. Call light in reach. Bed rails up X2.
--- NOTE | 2020-04-23 14:32 | NUR ---
PATIENT IN BED RESTING. CALL LIGHT IN REACH. NO FURTHER NEEDS AT THIS TIME.
--- NOTE | 2020-04-23 18:25 | NUR ---
REMAINS WITH LEFT SIDED WEAKNESS AND SLIGHT LEFT FACIAL DROOP. ASKS QUESTIONS THROUGHOUT THE SHIFT. TELEMETRY DC'D. IV REMAINS SALINE LOCKED. CONTINUES TO WORK WITH PT.
--- NOTE | 2020-04-23 18:26 | NUR ---
PATIENT IN BED RESTING. FRESH WATER GIVEN. CALL LIGHT IN REACH. NO FURTHER NEEDS AT THIS TIME. PATIENT REFUSED LINEN CHANGE, SIAD SHE IS GOING HOME TOMORROW SO DONT WORRY ABOUT IT.
--- NOTE | 2020-04-23 20:59 | NUR ---
Awake, on room air, visisitng with family via phone. No c/o pain. Coop with assessment,s Opsite to L forearm healing scabbed and bruised areas from pet scratches. No c/o SOB or CP, Continues to have L sided residual weakness. SL patent. Fluids and call light at bedside. Pleasant
--- NOTE | 2020-04-23 22:42 | NUR ---
RESTING, EYES CLOSED, NO RESP DISTRESS, NO C/O CP OR SOB. CALL LIGHT AND FLUIDS AT BEDSIDE, LEGES ELEVATED FALL PRECAUTIONS IN PLACE
--- NOTE | 2020-04-24 01:03 | NUR ---
Resting, on room air, resp even and unlabored. turns self in bed, Fluids and call light at bedside
--- NOTE | 2020-04-24 02:18 | NUR ---
RESTING, NO DISTRESS, FLUIDS AT BEDSIDE, TURNS SELF IN BED
--- NOTE | 2020-04-24 06:25 | NUR ---
HAS SLEPT, HAS CHRONIC BACK PAIN, DENIES NEED FOR TYLENOL. NO C/O CP OR N/V. COPNTINUES TO HAVE LEFT SIDED RESIDUAL WEAKNESS BUT MUCH IMPROVED. 1PA/GAIT BELT AND FWW. SL PATENT, TOLERATING LIQUIDS AND DIET WELL. ALERT AND ORIENTED, PLEASANT.
--- NOTE | 2020-04-24 07:16 | NUR ---
Recieved report from Leif Méndez RN. Patient lying on left side. Denies pain or other needs at this time. Call light in reach, bed rails up X2.
[2020-04-24] MEDS ORDERED: LIPITOR40 MG PO (09:54)
[2020-04-24] MEDS ORDERED: ASPIR 8181 MG PO (09:55)
--- NOTE | 2020-04-24 12:08 | NUR ---
DC instructions given. Verbalizes understanding. IV DC'd catheter intact. Assist to BR.
== END 2020-04-24 12:30 | disposition home or self-care (01) ==
LOC: ED 16:10 → MS 16:11
PROVIDERS: ADMIT Student in an Organized Health Care Education/Training Program
DX: I63.9 Cerebral infarction, unspecified (principal); I10 Essential (primary) hypertension; E03.9 Hypothyroidism, unspecified; F39 Unspecified mood [affective] disorder; G89.29 Other chronic pain; Z88.2 Allergy status to sulfonamides; Z88.8 Allergy status to other drugs, medicaments and biological substances; Z79.899 Other long term (current) drug therapy
CPT/HCPCS: 36415; 70450; 70496; 70498; 70551; 71045; 80048; 80053; 80061; 81001; 83036; 83880; 84439; 84443; 84484; 85025; 85610; 85730; 87088; 93005; 93010; 93306; 97110; 97161; 97165; 97530; 99285-25; C9803; G0378; Q9967; U0002